=== PATIENT | male | born 1965 | race Caucasian/White ===

== ENCOUNTER 2016-09-01 14:05 | Observation (INO) | payer BC ==
[2016-09-01] MEDS ORDERED: Diltiazem 25 MG/5 ML SDV IVPUSH ONE (14:15)
[2016-09-01] MEDS ORDERED: Sodium Chloride 0.9% 1,000 ML IV SCH ×2 (14:15→17:01)
[2016-09-01] MEDS ORDERED: Diltiazem 100 MG in Sodium Chloride 0.9% 100 ML IV SCH (14:30)
--- NOTE | 2016-09-01 15:19 | EDM.PDOC ---
ED HPI GENERAL MEDICAL PROBLEM - General Chief Complaint: Chest Pain Stated Complaint: FROM CLINIC CHEST PAIN Time Seen by Provider: 09/01/16 15:14 Source of Information: Reports: Patient, Family History Limitations: Reports: No Limitations - History of Present Illness INITIAL COMMENTS - FREE TEXT/NARRATIVE: Pt went to the walk in clinic today and was found to have a heart rate of 190. He has had slight chest pressure. He has very poor exercise tolerance. He did have a tick bite several days ago and he thinks it could have been on about 2 days. He has been having fevers. he had marked chilling . He did not check his temp. Onset: Gradual Duration: Day(s):, Other (pt has been very weak anf tired. ) Location: Reports: Chest, Other (pt has chest pressure. ) Associated Symptoms: Reports: Diaphoresis, Fever/Chills, Weakness - Related Data Allergies Allergy/AdvReac Type Severity Reaction Status Date / Time No Known Allergies Allergy Verified 09/01/16 14:19 Home Meds: Home Meds NK [No Known Home Meds] 09/01/16 [History] Past Medical History Respiratory History: Reports: Bronchitis, Recurrent - Infectious Disease History Infectious Disease History: Reports: Chicken Pox, Measles, Mumps Social & Family History - Family History Cardiac: Reports: Afib, Arrhythmia, [place] - Tobacco Use Smoking Status *Q: Former Smoker Used Tobacco, but Quit: Yes Month Tobacco Last Used: 1 Second Hand Smoke Exposure: No - Caffeine Use Caffeine Use: Reports: Coffee, Soda - Recreational Drug Use Recreational Drug Use: No ED ROS GENERAL - Review of Systems Review Of Systems: See Below Constitutional: Reports: Fever, Chills, Other (pt has shaking chills when he gets out of the shower) HEENT: Reports: No Symptoms Respiratory: Reports: No Symptoms Cardiovascular: Reports: Palpitations, Other ( chest pressure) Endocrine: Reports: Fatigue GI/Abdominal: Reports: No Symptoms : Reports: No Symptoms Musculoskeletal: Reports: No Symptoms Skin: Reports: No Symptoms Neurological: Reports: No Symptoms Psychiatric: Reports: Anxiety ED EXAM, GENERAL - Physical Exam Exam: See Below Free Text/Narrative:: pt arrived with a heart rate of 180 in atrial fib. He hs been very fatiqued and not feeling well Exam Limited By: No Limitations General Appearance: Alert, Anxious, Mild Distress Ears: Normal TMs Nose: Normal Inspection Throat/Mouth: Normal Inspection Head: Atraumatic Neck: Normal Inspection Respiratory/Chest: No Respiratory Distress Cardiovascular: Tachycardia, Irregularly Irregular, Other ( rate of 180) GI/Abdominal: Soft, Non-Tender (Male) Exam: Deferred Rectal (Males) Exam: Deferred Extremities: Normal Inspection Neurological: Alert, Oriented, Normal Cognition Psychiatric: Anxious Course - Vital Signs Last Recorded V/S: Last Vital Signs Temp 36.8 C 09/01/16 14:42 Pulse 148 H 09/01/16 15:23 Resp 16 09/01/16 15:23 BP 164/51 H 09/01/16 15:23 Pulse Ox 95 09/01/16 15:23 - Orders/Labs/Meds Orders: Active Orders 24 hr Category Date Time Status EKG Documentation Completion [RC] ASDIRECTED Care 09/01/16 14:07 Inactive BABESIA MICROTI IGG AND IGM [REF] Stat Lab 09/01/16 14:21 Received CKMB [CHEM] Stat Lab 09/01/16 15:48 Ordered EHRLICHIA CHAFFEENSIS, IGG&IGM [REF] Stat Lab 09/01/16 14:21 Received LYME AB SCREEN RFLX [REF] Stat Lab 09/01/16 14:21 Received UA W/MICROSCOPIC [URIN] Urgent Lab 09/01/16 14:06 Uncollected Diltiazem [Cardizem] 100 mg Med 09/01/16 14:30 Active Sodium Chloride 0.9% [Normal Saline] 100 ml IV TITRATE Doxycycline [Vibramycin] 100 mg Med 09/01/16 15:04 Active Sodium Chloride 0.9% [Normal Saline] 100 ml IV ONETIME Sodium Chloride 0.9% [Normal Saline] 1,000 ml Med 09/01/16 14:15 Active IV ASDIRECTED Medication Orders Sodium Chloride (Normal Saline) 1,000 mls @ 500 mls/hr IV ASDIRECTED GAMAL Last Admin: 09/01/16 14:26 Dose: 500 mls/hr Diltiazem HCl 100 mg/ Sodium (Chloride) 100 mls @ 5 mls/hr IV TITRATE GAMAL; 5 MG /HR PRN Reason: Protocol Last Titration: 09/01/16 14:58 Dose: 15 mg/hr, 15 mls/hr Admin: 09/01/16 14:30 Dose: 5 mg/hr, 5 mls/hr Doxycycline Hyclate 100 mg/ (Sodium Chloride) 100 mls @ 100 mls/hr IV ONETIME ONE Stop: 09/01/16 16:03 Last Admin: 09/01/16 15:30 Dose: 100 mls/hr Admin: 09/01/16 15:30 Dose: 100 mls/hr Labs: Laboratory Tests 09/01/16 09/01/16 09/01/16 Range/Units 14:21 14:21 14:21 WBC 12.1 H (4.5-11.0) K/uL RBC 4.78 (4.30-5.90) M/uL Hgb 14.9 (12.0-15.0) g/dL Hct 43.4 (40.0-54.0) % MCV 91 (80-98) fL MCH 31 (27-31) pg MCHC 34 (32-36) % Plt Count 182 (150-400) K/uL Neut % (Auto) 69 H (36-66) % Lymph % (Auto) 21 L (24-44) % [place] % (Auto) 9 H (2-6) % Eos % (Auto) 0 L (2-4) % Baso % (Auto) 0 (0-1) % Sodium 141 (140-148) mmol/L Potassium 4.0 (3.6-5.2) mmol/L Chloride 104 (100-108) mmol/L Carbon Dioxide 24 (21-32) mmol/L Anion Gap 12.8 (5.0-14.0) mmol/L BUN 29 H (7-18) mg/dL Creatinine 1.5 H (0.8-1.3) mg/dL Est Cr Clr Drug Dosing 53.86 mL/min Estimated GFR (MDRD) 49 L (>60) Glucose 130 H (74-106) mg/dL Calcium 8.3 L (8.5-10.1) mg/dL Magnesium (1.8-2.4) mg/dL Total Bilirubin 0.7 (0.2-1.0) mg/dL AST 137 H (15-37) U/L ALT 159 H (12-78) U/L Alkaline Phosphatase 76 (46-116) U/L Creatine Kinase 3851 H (39-308) U/L Troponin I < 0.017 (0.000-0.056) ng/mL C-Reactive Protein (0.0-0.3) mg/dL Total Protein 6.4 (6.4-8.2) g/dL Albumin 3.7 (3.4-5.0) g/dL Globulin 2.7 (2.3-3.5) g/dL Albumin/Globulin Ratio 1.4 (1.2-2.2) 09/01/16 09/01/16 Range/Units 14:21 14:21 WBC (4.5-11.0) K/uL RBC (4.30-5.90) M/uL Hgb (12.0-15.0) g/dL Hct (40.0-54.0) % MCV (80-98) fL MCH (27-31) pg MCHC (32-36) % Plt Count (150-400) K/uL Neut % (Auto) (36-66) % Lymph % (Auto) (24-44) % [place] % (Auto) (2-6) % Eos % (Auto) (2-4) % Baso % (Auto) (0-1) % Sodium (140-148) mmol/L Potassium (3.6-5.2) mmol/L Chloride (100-108) mmol/L Carbon Dioxide (21-32) mmol/L Anion Gap (5.0-14.0) mmol/L BUN (7-18) mg/dL Creatinine (0.8-1.3) mg/dL Est Cr Clr Drug Dosing mL/min Estimated GFR (MDRD) (>60) Glucose (74-106) mg/dL Calcium (8.5-10.1) mg/dL Magnesium 2.1 (1.8-2.4) mg/dL Total Bilirubin (0.2-1.0) mg/dL AST (15-37) U/L ALT (12-78) U/L Alkaline Phosphatase (46-116) U/L Creatine Kinase (39-308) U/L Troponin I (0.000-0.056) ng/mL C-Reactive Protein 0.85 H (0.0-0.3) mg/dL Total Protein (6.4-8.2) g/dL Albumin (3.4-5.0) g/dL Globulin (2.3-3.5) g/dL Albumin/Globulin Ratio (1.2-2.2) Meds: Medications Generic Name Dose Route Start Last Admin Trade Name Freq PRN Reason Stop Dose Admin Sodium Chloride 1,000 mls @ 500 mls/hr 09/01/16 14:15 09/01/16 14:26 Normal Saline IV 500 mls/hr ASDIRECTED GAMAL Administration Diltiazem HCl 100 mg/ Sodium 100 mls @ 5 mls/hr 09/01/16 14:30 09/01/16 14:58 Chloride IV 15 mg/hr TITRATE GAMAL 15 mls/hr Protocol Titration 5 MG/HR Doxycycline Hyclate 100 mg/ 100 mls @ 100 mls/hr 09/01/16 15:04 09/01/16 15: 30 Sodium Chloride IV 09/01/16 16:03 100 mls/hr ONETIME ONE Administration Discontinued Medications Generic Name Dose Route Start Last Admin Trade Name Freq PRN Reason Stop Dose Admin Diltiazem HCl 10 mg 09/01/16 14:15 09/01/16 14:26 Diltiazem IVPUSH 09/01/16 14:16 10 mg ONETIME ONE Administration - Re-Assessments/Exams Free Text/Narrative Re-Assessment/Exam: 09/01/16 15:49 pt has a markedly elevted cpk. The trop is normal.His creatnine is 1.5. He has borderline platlets and his liver enzymes are up. He did have a tick bite several days ago. His heart rate was 190 on arrival. His chest xray looks ok. His ekg shows atrial fib. Departure - Departure Time of Disposition: 15:52 Disposition: Admitted As Inpatient 65 Condition: fair Clinical Impression: Anaplasmosis, Atrial fibrillation, Myositis Forms: ED Department Discharge Care Plan Goals: admit to Dr babcock. - My Orders Last 24 Hours: My Active Orders 09/01/16 14:06 UA W/MICROSCOPIC [URIN] Urgent 09/01/16 14:07 EKG Documentation Completion [RC] ASDIRECTED 09/01/16 14:15 Sodium Chloride 0.9% [Normal Saline] 1,000 ml IV ASDIRECTED 09/01/16 14:21 BABESIA MICROTI IGG AND IGM [REF] Stat EHRLICHIA CHAFFEENSIS, IGG&IGM [REF] Stat LYME AB SCREEN RFLX [REF] Stat 09/01/16 14:30 Diltiazem [Cardizem] 100 mg Sodium Chloride 0.9% [Normal Saline] 100 ml IV TITRATE 09/01/16 15:04 Doxycycline [Vibramycin] 100 mg Sodium Chloride 0.9% [Normal Saline] 100 ml IV ONETIME 09/01/16 15:48 CKMB [CHEM] Stat - Assessment/Plan Last 24 Hours: My Active Orders 09/01/16 14:06 UA W/MICROSCOPIC [URIN] Urgent 09/01/16 14:07 EKG Documentation Completion [RC] ASDIRECTED 09/01/16 14:15 Sodium Chloride 0.9% [Normal Saline] 1,000 ml IV ASDIRECTED 09/01/16 14:21 BABESIA MICROTI IGG AND IGM [REF] Stat EHRLICHIA CHAFFEENSIS, IGG&IGM [REF] Stat LYME AB SCREEN RFLX [REF] Stat 09/01/16 14:30 Diltiazem [Cardizem] 100 mg Sodium Chloride 0.9% [Normal Saline] 100 ml IV TITRATE 09/01/16 15:04 Doxycycline [Vibramycin] 100 mg Sodium Chloride 0.9% [Normal Saline] 100 ml IV ONETIME 09/01/16 15:48 CKMB [CHEM] Stat
[2016-09-01] MEDS: Doxycycline 100 MG in Sodium Chloride 0.9% 100 ML IV ONE (15:30)
--- NOTE | 2016-09-01 16:49 | PCM.HP ---
H&P History of Present Illness - General Date of Service: 09/01/16 Admit Problem/Dx: Admission Diagnosis/Problem Admission Diagnosis/Problem Afib, Atrial fibrillation Source of Information: Patient, Provider History Limitations: Reports: No Limitations - History of Present Illness Initial Comments - Free Text/Narative: Ephraim presents to the emergency room today with proximally 2 weeks of progressive fatigue, shortness of breath with exertion and fevers at home. He reports onset of symptoms on August 16 with initial complaints including sinus congestion and sinus drainage. Over the next couple of days this improved but his energy level dropped significantly. 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 He reports some intermittent "twinges" in his left chest but does not say that he has pain. 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 He reports moderate achy pain in his thighs for the past few days but thinks this was because he overdid it using the skin steer. He has had fevers including drenching sweats at home over the past few days. He did have a tick bite approximately 2 weeks ago. He does not recall having much attention to the take to see if it was a deer tick or not. Appetite has been normal. No diarrhea but he has had some constipation. Workup in the emergency room remarkable for atrial fibrillation with rapid ventricular response and heart rates in the 150-190 range. These are improving with a diltiazem infusion. He has acute kidney injury, elevated AST and ALT and leukocytosis in addition to a CK level of nearly 3500. There is concern for tickborne illness leading to the above abnormal labs and symptoms. With his atrial fibrillation he will be admitted for management. - Related Data Allergies/Adverse Reactions: Allergies Allergy/AdvReac Type Severity Reaction Status Date / Time No Known Allergies Allergy Verified 09/01/16 14:19 Home Medications: Home Meds NK [No Known Home Meds] 09/01/16 [History] Past Medical History Respiratory History: Reports: Bronchitis, Recurrent - Infectious Disease History Infectious Disease History: Reports: Chicken Pox, Measles, Mumps Social & Family History - Family History Cardiac: Reports: Afib, Arrhythmia, [place] - Tobacco Use Smoking Status *Q: Former Smoker Used Tobacco, but Quit: Yes Month Tobacco Last Used: 1 Second Hand Smoke Exposure: No - Caffeine Use Caffeine Use: Reports: Coffee, Soda - Alcohol Use Alcohol Use History: Yes Days Per Week of Alcohol Use: 1 Number of Drinks Per Day: 1 Total Drinks Per Week: 1 - Recreational Drug Use Recreational Drug Use: No H&P Review of Systems - Review of Systems: Review Of Systems: See Below Free Text/Narrative: A complete 12 point review of systems was obtained. Pertinent positives and negatives are noted in the history of present illness. All other systems were reviewed and were negative except as noted. Exam - Exam Exam: See Below - Vital Signs Vital Signs: Last Vital Signs Temp 36.4 C 09/01/16 16:46 Pulse 111 H 09/01/16 16:46 Resp 18 09/01/16 16:46 BP 130/77 09/01/16 16:46 Pulse Ox 91 L 09/01/16 16:46 Weight: 79.379 kg - Exam Quality Assessment: No: Supplemental Oxygen, Urinary Catheter General: Alert, Oriented, Cooperative. No: Mild Distress HEENT: Conjunctiva Clear, Mucosa Moist & [place]. No: Scleral Icterus Neck: Supple, Trachea Midline. No: Lymphadenopathy, Thyromegaly Lungs: Normal Respiratory Effort, Rales (few right lung base) Cardiovascular: Irregular Rhythm, Tachycardia. No: Systolic Murmur Abdomen: Normal Bowel Sounds, Soft. No: Distention, Tenderness Back Exam: Normal Inspection, Full Range of Motion Extremities: Normal Inspection, Normal Pulses, Edema (very mild ankle edema bilaterally ) Skin: Warm, Dry, Intact Neuro Extensive - Mental Status: Alert, Oriented x3 Neuro Extensive - Motor, Sensory, Reflexes: CN II-XII Intact. No: Dysarthria, Abnormal Motor, Tremor Psychiatric: Alert, Normal Affect - Patient Data Lab Results last 24 hrs: Laboratory Results - last 24 hr 09/01/16 09/01/16 09/01/16 Range/Units 14:21 14:21 14:21 WBC 12.1 H (4.5-11.0) K/uL RBC 4.78 (4.30-5.90) M/uL Hgb 14.9 (12.0-15.0) g/dL Hct 43.4 (40.0-54.0) % MCV 91 (80-98) fL MCH 31 (27-31) pg MCHC 34 (32-36) % Plt Count 182 (150-400) K/uL Neut % (Auto) 69 H (36-66) % Lymph % (Auto) 21 L (24-44) % [place] % (Auto) 9 H (2-6) % Eos % (Auto) 0 L (2-4) % Baso % (Auto) 0 (0-1) % Sodium 141 (140-148) mmol/L Potassium 4.0 (3.6-5.2) mmol/L Chloride 104 (100-108) mmol/L Carbon Dioxide 24 (21-32) mmol/L Anion Gap 12.8 (5.0-14.0) mmol/L BUN 29 H (7-18) mg/dL Creatinine 1.5 H (0.8-1.3) mg/dL Est Cr Clr Drug Dosing 53.86 mL/min Estimated GFR (MDRD) 49 L (>60) Glucose 130 H (74-106) mg/dL Calcium 8.3 L (8.5-10.1) mg/dL Magnesium (1.8-2.4) mg/dL Total Bilirubin 0.7 (0.2-1.0) mg/dL AST 137 H (15-37) U/L ALT 159 H (12-78) U/L Alkaline Phosphatase 76 (46-116) U/L Creatine Kinase 3851 H (39-308) U/L CK-MB (CK-2) (0-3.6) mg/mL Troponin I < 0.017 (0.000-0.056) ng/mL C-Reactive Protein (0.0-0.3) mg/dL Total Protein 6.4 (6.4-8.2) g/dL Albumin 3.7 (3.4-5.0) g/dL Globulin 2.7 (2.3-3.5) g/dL Albumin/Globulin Ratio 1.4 (1.2-2.2) 09/01/16 09/01/16 09/01/16 Range/Units 14:21 14:21 15:51 WBC (4.5-11.0) K/uL RBC (4.30-5.90) M/uL Hgb (12.0-15.0) g/dL Hct (40.0-54.0) % MCV (80-98) fL MCH (27-31) pg MCHC (32-36) % Plt Count (150-400) K/uL Neut % (Auto) (36-66) % Lymph % (Auto) (24-44) % [place] % (Auto) (2-6) % Eos % (Auto) (2-4) % Baso % (Auto) (0-1) % Sodium (140-148) mmol/L Potassium (3.6-5.2) mmol/L Chloride (100-108) mmol/L Carbon Dioxide (21-32) mmol/L Anion Gap (5.0-14.0) mmol/L BUN (7-18) mg/dL Creatinine (0.8-1.3) mg/dL Est Cr Clr Drug Dosing mL/min Estimated GFR (MDRD) (>60) Glucose (74-106) mg/dL Calcium (8.5-10.1) mg/dL Magnesium 2.1 (1.8-2.4) mg/dL Total Bilirubin (0.2-1.0) mg/dL AST (15-37) U/L ALT (12-78) U/L Alkaline Phosphatase (46-116) U/L Creatine Kinase (39-308) U/L CK-MB (CK-2) 97.4 H* (0-3.6) mg/mL Troponin I (0.000-0.056) ng/mL C-Reactive Protein 0.85 H (0.0-0.3) mg/dL Total Protein (6.4-8.2) g/dL Albumin (3.4-5.0) g/dL Globulin (2.3-3.5) g/dL Albumin/Globulin Ratio (1.2-2.2) Result Diagrams: 09/01/16 14:21 09/01/16 14:21 EKG INTERPRETATION EKG Date: 09/01/16 Rhythm: a-fib Rate (beats/min): 170 [place]: normal P-wave: variable QRS: normal ST-T: normal QT: normal Comparison: NA - no prior EKG *Q Meaningful Use (ADM) - VTE *Q VTE Criteria *Q: - VTE Risk Assess *Q Each Risk Factor Represents 1 Point: Age 41 - 59 years Total Score 1 Point Risk Factors: 1 - Stroke *Q Stroke Criteria *Q: - AMI *Q AMI Criteria *Q: - Problem List (1) Atrial fibrillation with rapid ventricular response SNOMED Code(s): 523661044463325 ICD Code: I48.91 - UNSPECIFIED ATRIAL FIBRILLATION Status: Acute Current Visit: Yes (2) Acute kidney injury SNOMED Code(s): 32306946 ICD Code: N17.9 - ACUTE KIDNEY FAILURE, UNSPECIFIED Status: Acute Current Visit: Yes (3) Anaplasmosis SNOMED Code(s): 155702629 ICD Code: A77.49 - OTHER EHRLICHIOSIS Status: Acute Current Visit: Yes Problem List Initiated/Reviewed/Updated: Yes Orders Last 24hrs: Active Orders 24 hr Category Date Time Status EKG Documentation Completion [RC] ASDIRECTED Care 09/01/16 14:07 Inactive BABESIA MICROTI IGG AND IGM [REF] Stat Lab 09/01/16 14:21 Received EHRLICHIA CHAFFEENSIS, IGG&IGM [REF] Stat Lab 09/01/16 14:21 Received LYME AB SCREEN RFLX [REF] Stat Lab 09/01/16 14:21 Received TSH ULTRASENSITIVE [CHEM] Routine Lab 09/01/16 16:40 Ordered UA W/MICROSCOPIC [URIN] Urgent Lab 09/01/16 14:06 Uncollected Diltiazem [Cardizem] 100 mg Med 09/01/16 14:30 Active Sodium Chloride 0.9% [Normal Saline] 100 ml IV TITRATE Sodium Chloride 0.9% [Normal Saline] 1,000 ml Med 09/01/16 14:15 Active IV ASDIRECTED Resuscitation Status Routine Resus Stat 09/01/16 16:41 Ordered Medication Orders Sodium Chloride (Normal Saline) 1,000 mls @ 500 mls/hr IV ASDIRECTED GAMAL Last Admin: 09/01/16 14:26 Dose: 500 mls/hr Diltiazem HCl 100 mg/ Sodium (Chloride) 100 mls @ 5 mls/hr IV TITRATE GAMAL; 5 MG /HR PRN Reason: Protocol Last Titration: 09/01/16 14:58 Dose: 15 mg/hr, 15 mls/hr Admin: 09/01/16 14:30 Dose: 5 mg/hr, 5 mls/hr Assessment/Plan Comment:: Assessment and plan - Atrial fibrillation with rapid ventricular response - no history of heart disease. Suspect inflammatory cause and possibly myocarditis with probable tickborne illness. CK level elevated but troponin level normal. Patient is not symptomatic with the atrial fibrillation side not sure how long he has been in the rhythm. Cardioversion contraindicated because of this. His electrolytes are acceptable. Thyroid studies are pending. He seems to be improving with the diltiazem infusion. Hopefully treating the infection we'll provide significant benefit for the heart is well. -Continue diltiazem infusion -Followup thyroid studies -Consider low-dose beta dinh versus potentially amiodarone if diltiazem isn' t effective -Treat infection as below Acute kidney injury - probably secondary to acute infection and for hydration. -IV fluids -Labs in the morning Probable anaplasmosis - recent tick bite with compatible symptoms. Tick stuck at least 36 hours and possibly more than 48 hours. Laboratory studies but other than the elevated white blood cell count. He has received doxycycline in the emergency room. Is not currently febrile. Other obvious source of infection. -Doxycycline -Followup tick studies which are send out labs -Repeat labs in the morning Maintenance issues - - DVT prophylaxis - SCDs - GI prophylaxis - not indicated - Nutrition - regular diet - Osman catheter - not indicated CODE STATUS - full code Admission justification - patient will be referred observation status for management of paroxysmal atrial fibrillation with rapid ventricular response Disposition - anticipate discharge home tomorrow Primary care physician - none currently Navdeep Anthony M.D.
[2016-09-01] MEDS ORDERED: Acetaminophen 325 MG Tab PO PRN (17:01)
[2016-09-01] MEDS ORDERED: Polyethylene Glycol 3350 Powder 17 GM Packet PO PRN (17:01)
[2016-09-01] MEDS ORDERED: Ibuprofen 400 MG Tab PO PRN (17:01)
[2016-09-01] MEDS ORDERED: Ondansetron 4 MG Tab.DIS PO PRN (17:01)
[2016-09-01] MEDS: Diltiazem 100 MG in Sodium Chloride 0.9% 100 ML IV SCH (20:37)
[2016-09-01] MEDS ORDERED: LORazepam 1 MG Tab PO PRN (23:10)
[2016-09-02] MEDS: Diltiazem 100 MG in Sodium Chloride 0.9% 100 ML IV SCH (03:35)
[2016-09-02] MEDS ORDERED: Doxycycline 100 MG Cap PO SCH (04:00)
[2016-09-02 05:29] VITALS: BP 113/69
[2016-09-02] MEDS ORDERED: Diltiazem 180 MG Cap.CD PO SCH (06:15)
--- NOTE | 2016-09-02 06:21 | PCM.DCSUM1 ---
Discharge Summary - Hospital Course Brief History: 51-year-old male with history of tobacco dependence who presents with fevers and fatigue. 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 - Discharge Data Discharge Date: 09/02/16 Discharge Disposition: Home, Self-Care 01 Condition: Fair - Discharge Diagnosis/Problem(s) (1) Atrial fibrillation with rapid ventricular response SNOMED Code(s): 696827301370855 ICD Code: I48.91 - UNSPECIFIED ATRIAL FIBRILLATION Status: Acute (2) Acute kidney injury SNOMED Code(s): 66335426 ICD Code: N17.9 - ACUTE KIDNEY FAILURE, UNSPECIFIED Status: Acute (3) Anaplasmosis SNOMED Code(s): 015505628 ICD Code: A77.49 - OTHER EHRLICHIOSIS Status: Acute - Patient Summary/Data Hospital Course: Ephraim presented to the emergency room with fevers and fatigue. 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 He was admitted to the intensive care unit on a diltiazem infusion. There is no evidence for myocardial ischemia but he did have an elevated CPK which was thought secondary to myositis and possibly myocarditis from the anaplasmosis. We are able to achieve good rate control using the diltiazem infusion but he did remain in atrial fibrillation overnight. His CK level has improved with hydration as has the mild elevation of AST and ALT. Has not had any fevers overnight and clinically feels better the morning after admission. 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 We have achieved good rate control so I believe he is safe for hospital discharge and outpatient management at this point. I suspect that the atrial fibrillation is caused by the suspected infection and should resolve with treatment for the infection. His CHADSS score is 0 at this time but I did recommend that he take a baby aspirin. 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 Titers for tickborne disease have been sent but even if these return negative I think he would benefit from a full course of treatment because of the known tic bite with attachment greater than 24 hours and possibly greater than 48 hours as well as fairly classic symptoms and laboratory studies that fit fairly well. He will be discharged to home on the doxycycline as well as a long-acting version of diltiazem and a baby aspirin. He was encouraged to followup early next week to ensure that he continues to improve. - Patient Instructions Diet: Regular Diet as Tolerated Activity: As Tolerated Driving: May Drive Today Showering/Bathing: May Shower Notify Provider of: Fever, Increased Pain, Nausea and/or Vomiting Other/Special Instructions: 1. 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 Your heart rate has improved significantly with the use of diltiazem but you have not gone back to a normal rhythm as of yet. I recommend that we continue the diltiazem after hospital discharge to help keep your heart rate at a normal level. This should just be a temporary medication. You should take it once daily in the morning. Your first dose is due tomorrow morning because you had a dose before you left the hospital. I would recommend that you take a baby aspirin (81 mg) once daily for the next month. This will help reduce your risk of forming a blood clot in the upper chambers of your heart. 2. 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 Treatment for this consists of taking doxycycline 100 mg twice daily for a total of 21 days. You should take this medication with food. Your first dose is due tonight at supper time. This medication can make your skin more sensitive to the sun so you should take extra steps to avoid excessive sun exposure. 3. You can maintain activity as tolerated listened to your body and if you are becoming fatigued or short of breath please take a break. 4. Please followup next week to recheck your heart and see how you are feeling after the antibiotics were initiated. 5. Please seek medical attention if you develop fever greater than 101, have shortness of breath impairs your activities of daily living, you feel dizzy or lightheaded to the point that you think you're going to pass out or you do not continue to feel better with the current treatment plan. - Discharge Plan Prescriptions/Med Rec: Diltiazem HCl [Diltiazem 24Hr Cd] 360 mg PO DAILY #30 cap.er.24h Doxycycline Calcium [IMW: Doxycycline] 100 mg PO Q12H #40 capsule LORazepam [Ativan] 1 mg PO BEDTIME PRN #15 tablet PRN Reason: Sleep Home Medications: Home Meds Diltiazem HCl [Diltiazem 24Hr Cd] 360 mg PO DAILY #30 cap.er.24h 09/02/16 [Rx] Doxycycline Calcium [IMW: Doxycycline] 100 mg PO Q12H #40 capsule 09/02/16 [Rx] LORazepam [Ativan] 1 mg PO BEDTIME PRN #15 tablet 09/02/16 [Rx] Patient Handouts: Doxycycline tablets or capsules, Atrial Fibrillation Referrals: Marek Patel STRAPPER OPERATOR [Nurse Practitioner] - (f/u next week - f/u hospital stay for afib and anaplasmosis) - Discharge Summary/Plan Comment DC Time >30 min.: No (25) - Patient Data Vitals - Most Recent: Last Vital Signs Temp 36.7 C 09/02/16 05:00 Pulse 96 09/02/16 05:00 Resp 22 H 09/02/16 05:00 BP 113/69 09/02/16 05:00 Pulse Ox 91 L 09/02/16 05:00 Weight - Most Recent: 79.379 kg I&O - Last 24 hours: Intake & Output 09/01/16 09/01/16 09/02/16 14:59 22:59 06:59 Intake Total 600 Balance 600 Lab Results - Last 24 hrs: Laboratory Results - last 24 hr 09/02/16 09/02/16 Range/Units 05:10 05:10 WBC 11.3 H (4.5-11.0) K/uL RBC 4.43 (4.30-5.90) M/uL Hgb 13.7 (12.0-15.0) g/dL Hct 40.7 (40.0-54.0) % MCV 92 (80-98) fL MCH 31 (27-31) pg MCHC 34 (32-36) % Plt Count 154 (150-400) K/uL Sodium 139 L (140-148) mmol/L Potassium 4.0 (3.6-5.2) mmol/L Chloride 107 (100-108) mmol/L Carbon Dioxide 20 L (21-32) mmol/L Anion Gap 16.0 H (5.0-14.0) mmol/L BUN 24 H (7-18) mg/dL Creatinine 1.2 (0.8-1.3) mg/dL Est Cr Clr Drug Dosing 67.32 mL/min Estimated GFR (MDRD) > 60 (>60) Glucose 100 (74-106) mg/dL Calcium 7.7 L (8.5-10.1) mg/dL Total Bilirubin 0.6 (0.2-1.0) mg/dL AST 88 H (15-37) U/L ALT 130 H (12-78) U/L Alkaline Phosphatase 68 (46-116) U/L Creatine Kinase 1877 H (39-308) U/L Total Protein 5.8 L (6.4-8.2) g/dL Albumin 3.3 L (3.4-5.0) g/dL Globulin 2.5 (2.3-3.5) g/dL Albumin/Globulin Ratio 1.3 (1.2-2.2) Med Orders - Current: Current Medications Acetaminophen (Tylenol) 650 mg PO Q4H PRN PRN Reason: Pain (Mild 1-3)/fever Diltiazem HCl (Cardizem Cd) 360 mg PO DAILY GAMAL Doxycycline Hyclate (Vibramycin) 100 mg PO Q12H GAMAL Last Admin: 09/02/16 03:46 Dose: 100 mg Diltiazem HCl 100 mg/ Sodium (Chloride) 100 mls @ 5 mls/hr IV TITRATE GAMAL; 5 MG /HR PRN Reason: Protocol Last Admin: 09/02/16 03:35 Dose: 15 mg/hr, 15 mls/hr Sodium Chloride (Normal Saline) 1,000 mls @ 125 mls/hr IV ASDIRECTED GAMAL Last Admin: 09/02/16 03:37 Dose: 125 mls/hr Ibuprofen (Motrin) 400 mg PO Q6H PRN PRN Reason: Pain (mild 1-3) Lorazepam (Ativan) 1 mg PO Q4H PRN PRN Reason: Anxiety Last Admin: 09/01/16 23:26 Dose: 1 mg Ondansetron HCl (Zofran Odt) 4 mg PO Q6H PRN PRN Reason: Nausea able to take PO Polyethylene Glycol (Miralax) 17 gm PO DAILY PRN PRN Reason: Constipation Discontinued Medications Diltiazem HCl (Diltiazem) 10 mg IVPUSH ONETIME ONE Stop: 09/01/16 14:16 Last Admin: 09/01/16 14:26 Dose: 10 mg Sodium Chloride (Normal Saline) 1,000 mls @ 500 mls/hr IV ASDIRECTED GAMAL Last Admin: 09/01/16 14:26 Dose: 500 mls/hr Diltiazem HCl 100 mg/ Sodium (Chloride) 100 mls @ 5 mls/hr IV TITRATE GAMAL; 5 MG /HR PRN Reason: Protocol Last Titration: 09/01/16 14:58 Dose: 15 mg/hr, 15 mls/hr Doxycycline Hyclate 100 mg/ (Sodium Chloride) 100 mls @ 100 mls/hr IV ONETIME ONE Stop: 09/01/16 16:03 Last Admin: 09/01/16 15:30 Dose: 100 mls/hr *Q Meaningful Use (DIS) - VTE *Q VTE Criteria *Q: - Stroke *Q Stroke Criteria *Q: - AMI *Q AMI Criteria *Q:
== END 2016-09-02 06:35 | disposition home or self-care (01) ==
LOC: JP.ED 14:05 → JP.ICU 17:04
PROVIDERS: ADMIT Internal Medicine; ATTEND Internal Medicine
DX: I48.91 Unspecified atrial fibrillation (principal); N17.9 Acute kidney failure, unspecified; A77.49 Other ehrlichiosis; Z79.899 Other long term (current) drug therapy; Z87.891 Personal history of nicotine dependence
CPT/HCPCS: 36415; 80053; 81001; 82550; 82553; 83735; 84443; 84484; 85025; 85027; 86140; 86618; 86666; 86753; 96365; 96366; 96367; 96368; 96376; 99285; A9270; G0378; J7030; J7040; J3490

== ENCOUNTER 2016-09-09 09:54 | Inpatient (IN) | payer BC ==
[2016-09-09] MEDS ORDERED: Ondansetron 4 MG/2 ML SDV IV PRN (10:41)
[2016-09-09] MEDS ORDERED: Acetaminophen 325 MG Tab PO PRN (10:41)
[2016-09-09] MEDS ORDERED: Polyethylene Glycol 3350 Powder 17 GM Packet PO PRN (10:41)
[2016-09-09] MEDS ORDERED: Docusate Sodium 100 MG Cap PO PRN (10:41)
[2016-09-09] MEDS ORDERED: Magnesium Hydroxide 400 MG/5 ML Susp 30 ML Cup PO PRN (10:41)
[2016-09-09] MEDS ORDERED: Sodium Chloride 0.9% 10 ML Syringe FLUSH PRN ×2 (10:41→16:34)
[2016-09-09] MEDS ORDERED: oxyCODONE 5 MG Tab PO PRN (10:41)
[2016-09-09] MEDS ORDERED: Metoprolol Tartrate 25 MG Tab PO SCH (11:00)
[2016-09-09] MEDS ORDERED: Furosemide 20 MG/2 ML VIAL IV ONE (11:00)
[2016-09-09] MEDS ORDERED: Digoxin 500 MCG/2 ML Amp IVPUSH ONE ×2 (11:19→16:45)
--- NOTE | 2016-09-09 11:42 | CR ---
Mild cardiomegaly. Mild vascular congestion. Trace pleural effusions. No focal consolidation.
[2016-09-09] MEDS: Enoxaparin 40 MG/0.4 ML Syringe SUBCUT SCH (11:47)
[2016-09-09] MEDS ORDERED: Sodium Chloride 0.9% 100 ML IV ONE (16:34)
--- NOTE | 2016-09-09 16:40 | PCM.HP ---
H&P History of Present Illness - General Date of Service: 09/09/16 Admit Problem/Dx: Admission Diagnosis/Problem Admission Diagnosis/Problem Atrial fibrillation Source of Information: Patient, Old Records, Provider, RN Notes Reviewed History Limitations: Reports: No Limitations - History of Present Illness Initial Comments - Free Text/Narative: This patient is a 51-year-old gentleman who is admitted as a direct admission from the clinic because of atrial fibrillation with rapid ventricular response as well as severe peripheral edema/anasarca. He's had difficulty over the past 2-3 weeks with progressive increase in shortness of breath and peripheral edema. He was hospitalized at this facility just over a week ago with atrial fibrillation and rapid ventricular response. He was started on rate slowing medication with Cardizem and at the time of discharge had good rate control. CHADs2 VASc SCORE was 0 so he was not started on anticoagulation other than aspirin 81 mg daily. Since discharge he's gained significant weight as well as marked peripheral edema extending up into the lower abdomen and lower back. During this period of time has become progressively even more short of breath. He was seen and evaluated the clinic today because of elevated heart rate as well as shortness of breath and marked peripheral edema he was referred for direct admission to the hospital for further evaluation and management. He denies significant symptoms of chest pain or pressure, he has had both PND and orthopnea but they seem to be somewhat improved over the past few days. - Related Data Allergies/Adverse Reactions: Allergies Allergy/AdvReac Type Severity Reaction Status Date / Time No Known Allergies Allergy Verified 09/01/16 14:19 Home Medications: Home Meds Diltiazem HCl [Diltiazem 24Hr Cd] 360 mg PO DAILY #30 cap.er.24h 09/02/16 [Rx] Doxycycline Calcium [IMW: Doxycycline] 100 mg PO Q12H #40 capsule 09/02/16 [Rx] LORazepam [Ativan] 1 mg PO BEDTIME PRN #15 tablet 09/02/16 [Rx] Aspirin [Halfprin] 81 mg PO DAILY 09/09/16 [History] Past Medical History Cardiovascular History: Reports: Arrhythmia, Heart Failure, Other (See Below) Other Cardiovascular History: a fib Respiratory History: Reports: Bronchitis, Recurrent - Infectious Disease History Infectious Disease History: Reports: Chicken Pox, Measles, Mumps Social & Family History - Family History Cardiac: Reports: Afib, Arrhythmia, [place] - Tobacco Use Smoking Status *Q: Former Smoker Used Tobacco, but Quit: Yes Month Tobacco Last Used: 1 Second Hand Smoke Exposure: No - Caffeine Use Caffeine Use: Reports: Coffee, Soda - Alcohol Use Days Per Week of Alcohol Use: 1 Number of Drinks Per Day: 1 Total Drinks Per Week: 1 - Recreational Drug Use Recreational Drug Use: No H&P Review of Systems - Review of Systems: Review Of Systems: See Below General: Denies: Fever, Chills, Weakness, Diaphoresis HEENT: Reports: No Symptoms Pulmonary: Reports: Shortness of Breath. Denies: Wheezing, Pleuritic Chest Pain , Cough, Sputum, Hemoptysis Cardiovascular: Reports: Dyspnea on Exertion, Orthopnea, PND, Edema, Lightheadedness. Denies: Chest Pain, Palpitations, Syncope Gastrointestinal: Reports: No Symptoms Genitourinary: Reports: No Symptoms Musculoskeletal: Reports: No Symptoms Skin: Reports: No Symptoms Psychiatric: Reports: No Symptoms Neurological: Reports: No Symptoms Hematologic/Lymphatic: Reports: No Symptoms Immunologic: Reports: No Symptoms Exam - Exam Exam: See Below - Vital Signs Vital Signs: Last Vital Signs Temp 97.9 F 09/09/16 11:03 Pulse 90 09/09/16 15:41 Resp 19 09/09/16 15:41 BP 100/79 09/09/16 15:41 Pulse Ox 95 09/09/16 15:41 Weight: 190 lb 6.4 oz - Exam Quality Assessment: DVT Prophylaxis General: Alert, Oriented, Cooperative, Mild Distress HEENT: Conjunctiva Clear, EOMI, Hearing Intact, Mucosa Moist & [place], Normal Nasal Septum, Posterior Pharynx Clear, Pupils Equal, Pupils Reactive Neck: Supple, Trachea Midline, +2 Carotid Pulse wo Bruit Lungs: Normal Respiratory Effort, Rales. No: Decreased Breath Sounds, Crackles , Rhonchi, Wheezing Cardiovascular: Normal S1, Normal S2, Irregular Rhythm, Tachycardia, Systolic Murmur. No: Diastolic Murmur Abdomen: Normal Bowel Sounds, Soft Back Exam: Normal Inspection, Full Range of Motion, NT Extremities: Edema Skin: Warm, Dry, Intact Neurological: Cranial Nerves Intact, Strength Equal Bilateral, Normal Speech, Normal Tone, Sensation Intact. No: Focal Deficit Neuro Extensive - Mental Status: Alert, Oriented x3, Normal Mood/Affect, Normal Cognition, Memory Intact - Patient Data Lab Results last 24 hrs: Laboratory Results - last 24 hr 09/09/16 09/09/16 09/09/16 Range/Units 11:10 11:10 11:10 WBC 12.1 H (4.5-11.0) K/uL RBC 4.79 (4.30-5.90) M/uL Hgb 14.9 (12.0-15.0) g/dL Hct 44.0 (40.0-54.0) % MCV 92 (80-98) fL MCH 31 (27-31) pg MCHC 34 (32-36) % Plt Count 177 (150-400) K/uL Neut % (Auto) 64 (36-66) % Lymph % (Auto) 25 (24-44) % [place] % (Auto) 10 H (2-6) % Eos % (Auto) 1 L (2-4) % Baso % (Auto) 1 (0-1) % Sodium 139 L (140-148) mmol/L Potassium 4.1 (3.6-5.2) mmol/L Chloride 108 (100-108) mmol/L Carbon Dioxide 23 (21-32) mmol/L Anion Gap 12.1 (5.0-14.0) mmol/L BUN 30 H (7-18) mg/dL Creatinine 1.3 (0.8-1.3) mg/dL Est Cr Clr Drug Dosing 62.15 mL/min Estimated GFR (MDRD) 58 L (>60) Glucose 109 H (74-106) mg/dL Calcium 8.0 L (8.5-10.1) mg/dL Magnesium 1.9 (1.8-2.4) mg/dL Total Bilirubin 0.5 (0.2-1.0) mg/dL AST 56 H (15-37) U/L ALT 103 H (12-78) U/L Alkaline Phosphatase 81 (46-116) U/L Creatine Kinase 503 H (39-308) U/L CK-MB (CK-2) 15.0 H* (0-3.6) mg/mL Troponin I 0.017 (0.000-0.056) ng/mL Total Protein 5.9 L (6.4-8.2) g/dL Albumin 3.1 L (3.4-5.0) g/dL Globulin 2.8 (2.3-3.5) g/dL Albumin/Globulin Ratio 1.1 L (1.2-2.2) TSH, Ultra Sensitive 0.837 (0.358-3.740) uIU/mL Result Diagrams: 09/09/16 11:10 09/09/16 11:10 *Q Meaningful Use (ADM) - VTE *Q VTE Criteria *Q: - VTE Risk Assess *Q Each Risk Factor Represents 1 Point: Age 41 - 59 years, Swollen Legs, Current, Congestive Heart Failure, Less than 1 Month Total Score 1 Point Risk Factors: 3 Each Risk Factor Represents 2 Points: None Total Score 2 Point Risk Factors: 0 Each Risk Factor Represents 3 Points: None Total Score 3 Point Risk Factors: 0 Each Risk Factor Represents 5 Points: None Total Score 5 Point Risk Factors: 0 Venous Thromboembolism Risk Factor Score *Q: 3 - Stroke *Q Stroke Criteria *Q: - AMI *Q AMI Criteria *Q: Problem List Initiated/Reviewed/Updated: Yes Orders Last 24hrs: Active Orders 24 hr Category Date Time Status Cardiac Monitoring [RC] .As Directed Care 09/09/16 10:42 Active Height and Weight [RC] 0511 Care 09/09/16 10:41 Active Intake and Output [RC] QSHIFT Care 09/09/16 10:42 Active Notify Provider Vital Signs [RC] ASDIRECTED Care 09/09/16 10:42 Active Oxygen Therapy [RC] PRN Care 09/09/16 10:41 Active Up ad Karyna [RC] ASDIRECTED Care 09/09/16 10:41 Active VTE/DVT Education [RC] Per Unit Routine Care 09/09/16 10:41 Active Vital Signs [RC] Q4H Care 09/09/16 10:41 Active Consult to Dietary [Consult to Yard Switcher] [CONS] Cons 09/09/16 14:23 Active Routine 2 Gram Sodium Diet [DIET] Diet 09/09/16 Dinner Active Ang Chest [CT] Stat Exams 09/09/16 15:41 Ordered Echo Comp wo Cont [US] Urgent Exams 09/11/16 08:00 Ordered BASIC METABOLIC PANEL,BMP [CHEM] Timed Lab 09/10/16 05:00 Ordered CBC WITH AUTO DIFF [HEME] Timed Lab 09/10/16 05:00 Ordered CREATINE KINASE,CK [CHEM] Timed Lab 09/10/16 05:00 Ordered DIGOXIN [CHEM] Timed Lab 09/10/16 05:00 Ordered MAGNESIUM [CHEM] Timed Lab 09/10/16 05:00 Ordered Acetaminophen [Tylenol] Med 09/09/16 10:41 Active 650 mg PO Q4H PRN Aspirin Med 09/10/16 09:00 Active 81 mg PO DAILY Digoxin [Lanoxin] Med 09/09/16 16:28 Once 250 mcg IVPUSH ONETIME ONE Docusate Sodium [Colace] Med 09/09/16 10:41 Active 100 mg PO BID PRN Doxycycline [Vibramycin] Med 09/09/16 21:00 Active 100 mg PO BID Enoxaparin [Lovenox] Med 09/09/16 10:45 Active 40 mg SUBCUT DAILY Furosemide [Lasix] Med 09/09/16 19:00 Ordered 20 mg IVPUSH Q12H LORazepam [Ativan] Med 09/09/16 10:40 Active 1 mg PO BEDTIME PRN Magnesium Hydroxide [Milk of Magnesia] Med 09/09/16 10:41 Active 30 ml PO Q12H PRN Ondansetron [Zofran] Med 09/09/16 10:41 Active 4 mg IV Q4H PRN Polyethylene Glycol 3350 [MiraLAX] Med 09/09/16 10:41 Active 17 gm PO DAILY PRN Sodium Chloride 0.9% [Saline Flush] Med 09/09/16 10:41 Active 10 ml FLUSH ASDIRECTED PRN oxyCODONE Med 09/09/16 10:41 Active 5 mg PO Q4H PRN Saline Lock Insert [OM.PC] Routine Oth 09/09/16 10:41 Ordered Resuscitation Status Routine Resus Stat 09/09/16 10:41 Ordered EKG 12 Lead [EK] Stat Ther 09/09/16 10:41 Ordered Medication Orders Acetaminophen (Tylenol) 650 mg PO Q4H PRN PRN Reason: Pain (Mild 1-3)/fever Aspirin (Aspirin) 81 mg PO DAILY GAMAL Docusate Sodium (Colace) 100 mg PO BID PRN PRN Reason: Constipation Doxycycline Hyclate (Vibramycin) 100 mg PO BID GAMAL Enoxaparin Sodium (Lovenox) 40 mg SUBCUT DAILY GAMAL Last Admin: 09/09/16 11:47 Dose: 40 mg Lorazepam (Ativan) 1 mg PO BEDTIME PRN PRN Reason: Sleep Magnesium Hydroxide (Milk Of Magnesia) 30 ml PO Q12H PRN PRN Reason: Constipation Ondansetron HCl (Zofran) 4 mg IV Q4H PRN PRN Reason: Nausea/Vomiting Oxycodone HCl (Oxycodone) 5 mg PO Q4H PRN PRN Reason: Pain (moderate 4-6) Polyethylene Glycol (Miralax) 17 gm PO DAILY PRN PRN Reason: Constipation Sodium Chloride (Saline Flush) 10 ml FLUSH ASDIRECTED PRN PRN Reason: Keep Vein Open Assessment/Plan Comment:: ASSESSMENT AND PLAN SHORTNESS OF BREATH ASSOCIATED WITH MARKED PERIPHERAL EDEMA-suspect underlying cardiac dysfunction, also has significant systolic murmur noted on physical examination. Recent symptoms of increased shortness of breath, peripheral edema , PND, orthopnea, associated with atrial fibrillation and rapid ventricular response. -2 g sodium diet -Lasix 20 mg IV every 12 hours -CT scan with PE protocol -Echocardiogram to assess left ventricular function and valvular status ATRIAL FIBRILLATION WITH RAPID VENTRICULAR RESPONSE-unknown length of duration -Hold oral Cardizem given borderline blood pressures -Consider switch to beta dinh therapy -Digoxin IV -digoxin level in a.m. ELEVATED CK-noted on previous admission marked elevation, CK-MB also found to be elevated but only in the range of 2-3% of total -Repeat CT in a.m. -We'll need to consider evaluation for skeletal muscle inflammation MAINTENANCE ISSUES -DVT prophylaxis; Lovenox 40 mg subcutaneous daily -GI prophylaxis; not required -Osman catheter; not required -Nutrition; 2 g sodium diet -Nicotine dependence; not indicated CODE STATUS-full code ADMISSION STATUS-patient will be admitted to inpatient status, expect at least a 2 night hospital stay for evaluation and management of problems as outlined above. At the time of this admission I do not reasonably expected evaluation and management of this problem will require more than a 96 hour hospital stay. DISPOSITION-anticipate discharge to home after the hospital stay. PRIMARY CARE PROVIDER-Dr. Leone
[2016-09-09] MEDS ORDERED: Iopamidol 755 Mg/ML 100 ML Bottle IV SCH (16:45)
[2016-09-09] MEDS: Furosemide 20 MG/2 ML VIAL IVPUSH SCH (18:19)
[2016-09-09] MEDS: Doxycycline 100 MG Cap PO SCH (20:27)
[2016-09-10] MEDS: LORazepam 1 MG Tab PO PRN ×2 (00:06→21:50)
[2016-09-10] MEDS: Furosemide 20 MG/2 ML VIAL IVPUSH SCH ×2 (06:09→18:15)
[2016-09-10] MEDS: Doxycycline 100 MG Cap PO SCH ×2 (08:00→21:45)
[2016-09-10] MEDS: Aspirin 81 MG Tab.Chew PO SCH (08:00)
[2016-09-10] MEDS: Enoxaparin 40 MG/0.4 ML Syringe SUBCUT SCH (08:00)
[2016-09-10] MEDS ORDERED: Digoxin 500 MCG/2 ML Amp IVPUSH ONE (08:30)
[2016-09-10] MEDS ORDERED: Magnesium Oxide 400 MG Tab PO ONE (08:30)
[2016-09-10] MEDS ORDERED: Potassium Chloride 20 MEQ Tab.ER PO ONE (09:00)
[2016-09-10] MEDS ORDERED: DILTIAZEM HCL 360 MG PO SCH (09:00)
[2016-09-10] MEDS ORDERED: Diltiazem 180 MG Cap.CD PO SCH (09:00)
--- NOTE | 2016-09-10 09:20 | PCM.PN ---
- General Info Date of Service: 09/10/16 Functional Status: Reports: tolerating diet, urinating - Review of Systems General: Denies: Fever, Weakness, Chills Pulmonary: Denies: no symptoms Cardiovascular: Reports: Palpitations, Dyspnea on Exertion, Edema. Denies: Chest Pain, Orthopnea, PND Gastrointestinal: Reports: No symptoms Systems Review Comment:: This patient is a 51-year-old gentleman who is admitted yesterday with congestive heart failure, shortness of breath, peripheral edema, and atrial fibrillation with rapid ventricular response. He has diuresed well since admission and notes improvement in his edema as well as shortness of breath. Blood pressure somewhat better than it had been yesterday, diltiazem has been held. He's been started on digoxin which has helped rate control somewhat and we'll plan to start beta dinh therapy today. - Patient Data Vitals - most recent: Last Vital Signs Temp 97.9 F 09/10/16 08:00 Pulse 105 H 09/10/16 05:45 Resp 20 09/10/16 08:00 BP 109/61 09/10/16 08:00 Pulse Ox 95 09/10/16 08:00 Weight - most recent: 181 lb 6.4 oz I&O - last 24 hours: Intake & Output 09/09/16 09/10/16 09/10/16 22:59 06:59 14:59 Intake Total 240 Output Total 300 1375 1600 Balance -300 -5745 -1600 Lab Results last 24 hrs: Laboratory Results - last 24 hr 09/09/16 09/09/16 09/09/16 Range/Units 11:10 11:10 11:10 WBC 12.1 H (4.5-11.0) K/uL RBC 4.79 (4.30-5.90) M/uL Hgb 14.9 (12.0-15.0) g/dL Hct 44.0 (40.0-54.0) % MCV 92 (80-98) fL MCH 31 (27-31) pg MCHC 34 (32-36) % Plt Count 177 (150-400) K/uL Neut % (Auto) 64 (36-66) % Lymph % (Auto) 25 (24-44) % [place] % (Auto) 10 H (2-6) % Eos % (Auto) 1 L (2-4) % Baso % (Auto) 1 (0-1) % Sodium 139 L (140-148) mmol/L Potassium 4.1 (3.6-5.2) mmol/L Chloride 108 (100-108) mmol/L Carbon Dioxide 23 (21-32) mmol/L Anion Gap 12.1 (5.0-14.0) mmol/L BUN 30 H (7-18) mg/dL Creatinine 1.3 (0.8-1.3) mg/dL Est Cr Clr Drug Dosing 62.15 mL/min Estimated GFR (MDRD) 58 L (>60) Glucose 109 H (74-106) mg/dL Calcium 8.0 L (8.5-10.1) mg/dL Magnesium 1.9 (1.8-2.4) mg/dL Total Bilirubin 0.5 (0.2-1.0) mg/dL AST 56 H (15-37) U/L ALT 103 H (12-78) U/L Alkaline Phosphatase 81 (46-116) U/L Creatine Kinase 503 H (39-308) U/L CK-MB (CK-2) 15.0 H* (0-3.6) mg/mL Troponin I 0.017 (0.000-0.056) ng/mL Total Protein 5.9 L (6.4-8.2) g/dL Albumin 3.1 L (3.4-5.0) g/dL Globulin 2.8 (2.3-3.5) g/dL Albumin/Globulin Ratio 1.1 L (1.2-2.2) Triglycerides (15-150) mg/dL Cholesterol (0-200) mg/dL LDL Cholesterol Direct (0-100) mg/dL HDL Cholesterol (40-60) mg/dL TSH, Ultra Sensitive 0.837 (0.358-3.740) uIU/mL Digoxin (0.90-2.00) ng/mL 09/10/16 09/10/16 09/10/16 Range/Units 05:50 05:50 05:50 WBC 11.4 H (4.5-11.0) K/uL RBC 4.62 (4.30-5.90) M/uL Hgb 14.5 (12.0-15.0) g/dL Hct 42.3 (40.0-54.0) % MCV 92 (80-98) fL MCH 31 (27-31) pg MCHC 34 (32-36) % Plt Count 171 (150-400) K/uL Neut % (Auto) 65 (36-66) % Lymph % (Auto) 23 L (24-44) % [place] % (Auto) 10 H (2-6) % Eos % (Auto) 2 (2-4) % Baso % (Auto) 0 (0-1) % Sodium 141 (140-148) mmol/L Potassium 3.9 (3.6-5.2) mmol/L Chloride 109 H (100-108) mmol/L Carbon Dioxide 24 (21-32) mmol/L Anion Gap 11.9 (5.0-14.0) mmol/L BUN 26 H (7-18) mg/dL Creatinine 1.2 (0.8-1.3) mg/dL Est Cr Clr Drug Dosing 67.32 mL/min Estimated GFR (MDRD) > 60 (>60) Glucose 91 (74-106) mg/dL Calcium 7.9 L (8.5-10.1) mg/dL Magnesium 1.7 L (1.8-2.4) mg/dL Total Bilirubin (0.2-1.0) mg/dL AST (15-37) U/L ALT (12-78) U/L Alkaline Phosphatase (46-116) U/L Creatine Kinase 270 (39-308) U/L CK-MB (CK-2) (0-3.6) mg/mL Troponin I (0.000-0.056) ng/mL Total Protein (6.4-8.2) g/dL Albumin (3.4-5.0) g/dL Globulin (2.3-3.5) g/dL Albumin/Globulin Ratio (1.2-2.2) Triglycerides 66 (15-150) mg/dL Cholesterol 108 (0-200) mg/dL LDL Cholesterol Direct 60 (0-100) mg/dL HDL Cholesterol 46 (40-60) mg/dL TSH, Ultra Sensitive (0.358-3.740) uIU/mL Digoxin 0.40 L (0.90-2.00) ng/mL Med Orders - Current: Current Medications Acetaminophen (Tylenol) 650 mg PO Q4H PRN PRN Reason: Pain (Mild 1-3)/fever Aspirin (Aspirin) 81 mg PO DAILY [facility] Last Admin: 09/10/16 08:00 Dose: 81 mg Docusate Sodium (Colace) 100 mg PO BID PRN PRN Reason: Constipation Doxycycline Hyclate (Vibramycin) 100 mg PO BID [facility] Last Admin: 09/10/16 08:00 Dose: 100 mg Enoxaparin Sodium (Lovenox) 40 mg SUBCUT DAILY [facility] Last Admin: 09/10/16 08:00 Dose: 40 mg Furosemide (Lasix) 20 mg IVPUSH Q12H [facility] Last Admin: 09/10/16 06:09 Dose: 20 mg Lorazepam (Ativan) 1 mg PO BEDTIME PRN PRN Reason: Sleep Last Admin: 09/10/16 00:06 Dose: 1 mg Magnesium Hydroxide (Milk Of Magnesia) 30 ml PO Q12H PRN PRN Reason: Constipation Magnesium Oxide (Magnesium Oxide) 400 mg PO BID [facility] Metoprolol Tartrate (Lopressor) 25 mg PO Q6H [facility] Ondansetron HCl (Zofran) 4 mg IV Q4H PRN PRN Reason: Nausea/Vomiting Oxycodone HCl (Oxycodone) 5 mg PO Q4H PRN PRN Reason: Pain (moderate 4-6) Polyethylene Glycol (Miralax) 17 gm PO DAILY PRN PRN Reason: Constipation Sodium Chloride (Saline Flush) 10 ml FLUSH ASDIRECTED PRN PRN Reason: Keep Vein Open Sodium Chloride (Saline Flush) 10 ml FLUSH ONETIME PRN PRN Reason: PER RADIOLOGY PROTOCOL Last Admin: 09/09/16 16:57 Dose: 10 ml Discontinued Medications Digoxin (Lanoxin) 250 mcg IVPUSH ONETIME ONE Stop: 09/09/16 11:20 Last Admin: 09/09/16 11:42 Dose: 250 mcg Digoxin (Lanoxin) 250 mcg IVPUSH ONETIME ONE Stop: 09/09/16 16:46 Last Admin: 09/09/16 18:18 Dose: 250 mcg Digoxin (Lanoxin) 250 mcg IVPUSH ONETIME ONE Stop: 09/10/16 08:31 Diltiazem HCl (Cardizem Cd) 360 mg PO DAILY [facility] Furosemide (Lasix) 20 mg IV ONETIME ONE Stop: 09/09/16 11:01 Last Admin: 09/09/16 14:16 Dose: 20 mg Sodium Chloride (Normal Saline) 100 mls @ 3 mls/sec IV ONETIME ONE Stop: 09/09/16 16:35 Last Admin: 09/09/16 16:57 Dose: 3 mls/sec Iopamidol (Isovue-370 (76%)) 100 ml IV . DIRECTED [facility] Stop: 09/09/16 23:00 Last Admin: 09/09/16 16:57 Dose: 100 ml Magnesium Oxide (Magnesium Oxide) 800 mg PO ONETIME ONE Stop: 09/10/16 08:31 Metoprolol Tartrate (Lopressor) 25 mg PO Q6H [facility] Potassium Chloride (Klor-Con M20) 40 meq PO ONETIME ONE Stop: 09/10/16 09:01 - Exam Quality Assessment: DVT prophylaxis General: alert, oriented, cooperative, no acute distress Lungs: Clear to auscultation, Normal respiratory effort Cardiovascular: Irregular Rhythm, Tachycardia, Murmurs. No: Bradycardia, Gallops Abdomen: bowel sounds present, soft, no tenderness, no distension Extremities: edema Skin: warm, dry, intact - Problem List Review Problem List Initiated/Reviewed/Updated: Yes - My Orders Last 24 Hours: My Active Orders 09/09/16 10:40 LORazepam [Ativan] 1 mg PO BEDTIME PRN 09/09/16 10:41 Height and Weight [RC] 0511 Oxygen Therapy [RC] PRN Up ad Karyna [RC] ASDIRECTED VTE/DVT Education [RC] Per Unit Routine Vital Signs [RC] Q2H Acetaminophen [Tylenol] 650 mg PO Q4H PRN Docusate Sodium [Colace] 100 mg PO BID PRN Magnesium Hydroxide [Milk of Magnesia] 30 ml PO Q12H PRN Ondansetron [Zofran] 4 mg IV Q4H PRN Polyethylene Glycol 3350 [MiraLAX] 17 gm PO DAILY PRN Sodium Chloride 0.9% [Saline Flush] 10 ml FLUSH ASDIRECTED PRN oxyCODONE 5 mg PO Q4H PRN Saline Lock Insert [OM.PC] Routine Resuscitation Status Routine EKG 12 Lead [EK] Stat 09/09/16 10:42 Cardiac Monitoring [RC] Q6H Intake and Output [RC] QSHIFT Notify Provider Vital Signs [RC] ASDIRECTED 09/09/16 10:45 Enoxaparin [Lovenox] 40 mg SUBCUT DAILY 09/09/16 14:23 Consult to Dietary [Consult to Field Recorder] [CONS] Routine 09/09/16 15:41 Ang Chest [CT] Stat 09/09/16 16:34 Sodium Chloride 0.9% [Saline Flush] 10 ml FLUSH ONETIME PRN 09/09/16 18:30 Furosemide [Lasix] 20 mg IVPUSH Q12H 09/09/16 21:00 Doxycycline [Vibramycin] 100 mg PO BID 09/09/16 Dinner 2 Gram Sodium Diet [DIET] 09/10/16 09:00 Aspirin 81 mg PO DAILY 09/10/16 09:15 Metoprolol Tartrate [Lopressor] 25 mg PO Q6H 09/10/16 21:00 Magnesium Oxide 400 mg PO BID 09/11/16 05:00 BASIC METABOLIC PANEL,BMP [CHEM] Timed CBC WITH AUTO DIFF [HEME] Timed CREATINE KINASE,CK [CHEM] Timed DIGOXIN [CHEM] Timed 09/11/16 08:00 Echo Comp wo Cont [US] Urgent - Plan Plan:: ASSESSMENT AND PLAN SHORTNESS OF BREATH ASSOCIATED WITH MARKED PERIPHERAL EDEMA-suspect underlying cardiac dysfunction, also has significant systolic murmur noted on physical examination. Recent symptoms of increased shortness of breath, peripheral edema , PND, orthopnea, associated with atrial fibrillation and rapid ventricular response. Symptomatically improved with diuresis, less shortness of breath and edema. CT scan of the chest showed no evidence of pulmonary emboli, did document some cardiac enlargement as well as pulmonary edema -2 g sodium diet -Lasix 20 mg IV every 12 hours -Echocardiogram to assess left ventricular function and valvular status ATRIAL FIBRILLATION WITH RAPID VENTRICULAR RESPONSE-unknown length of duration. Rate control has improved over the past 24 hours with use of IV digoxin, will continue to hold Cardizem and start beta dinh therapy today. -Hold oral Cardizem -Metoprolol 25 mg by mouth every 6 hours -Digoxin IV -digoxin level in a.m. ELEVATED CK-noted on previous admission marked elevation, CK-MB also found to be elevated but only in the range of 2-3% of total. CK this morning is now within normal range -Repeat CK in a.m. MAINTENANCE ISSUES -DVT prophylaxis; Lovenox 40 mg subcutaneous daily -GI prophylaxis; not required -Osman catheter; not required -Nutrition; 2 g sodium diet -Nicotine dependence; not indicated CODE STATUS-full code ADMISSION STATUS-patient will be admitted to inpatient status, expect at least a 2 night hospital stay for evaluation and management of problems as outlined above. At the time of this admission I do not reasonably expected evaluation and management of this problem will require more than a 96 hour hospital stay. DISPOSITION-anticipate discharge to home after the hospital stay. PRIMARY CARE PROVIDER-Dr. Leone
[2016-09-10] MEDS: Metoprolol Tartrate 25 MG Tab PO SCH ×4 (10:11→21:45)
[2016-09-10] MEDS: Magnesium Oxide 400 MG Tab PO SCH (21:45)
[2016-09-11] MEDS: Metoprolol Tartrate 25 MG Tab PO SCH ×2 (04:21→09:36)
[2016-09-11] MEDS: Furosemide 20 MG/2 ML VIAL IVPUSH SCH (06:13)
[2016-09-11] MEDS: Magnesium Oxide 400 MG Tab PO SCH ×2 (08:40→20:31)
[2016-09-11] MEDS: Aspirin 81 MG Tab.Chew PO SCH (08:40)
[2016-09-11] MEDS: Enoxaparin 40 MG/0.4 ML Syringe SUBCUT SCH (08:40)
[2016-09-11] MEDS: Doxycycline 100 MG Cap PO SCH ×2 (08:40→20:30)
[2016-09-11] MEDS ORDERED: Digoxin 500 MCG/2 ML Amp IVPUSH ONE (09:00)
[2016-09-11] MEDS: Esmolol/Normal Saline 2.5 GM/250 ML BAG IV SCH ×2 (14:32→19:10)
[2016-09-11] MEDS ORDERED: Warfarin 2.5 MG Tab PO ONE (15:00)
[2016-09-11] MEDS: Enoxaparin 80 MG/0.8 ML Syringe SUBCUT SCH (16:43)
--- NOTE | 2016-09-11 17:14 | PCM.PN ---
- General Info Date of Service: 09/11/16 Functional Status: Reports: tolerating diet, ambulating, urinating - Review of Systems General: Denies: Fever, Weakness, Chills Pulmonary: Reports: no symptoms Cardiovascular: Reports: Palpitations, Edema Gastrointestinal: Reports: No symptoms Systems Review Comment:: This patient has had further good diuresis over the past 24 hours and is noted significant improvement in his peripheral edema as well as shortness of breath. Unfortunately heart rate remains elevated in the range of 120 to 130, blood pressures have remained somewhat borderline. Echocardiogram was obtained today and show severely decreased left ventricular function as well as chamber enlargement. Formal report is pending from cardiology. Discussed with cardiology manager continuous improvement in [place], they have recommended a trial of IV Esmolol for control of heart rate. Further evaluation for ischemic disease. - Patient Data Vitals - most recent: Last Vital Signs Temp 98.4 F 09/11/16 14:00 Pulse 109 H 09/11/16 14:32 Resp 16 09/11/16 16:00 BP 101/77 09/11/16 16:00 Pulse Ox 98 09/11/16 16:00 Weight - most recent: 172 lb 6.4 oz I&O - last 24 hours: Intake & Output 09/11/16 09/11/16 09/11/16 06:59 14:59 22:59 Intake Total 960 Output Total 2100 1250 Balance -2100 -290 Lab Results last 24 hrs: Laboratory Results - last 24 hr 09/11/16 09/11/16 09/11/16 Range/Units 04:34 04:34 13:52 WBC 11.0 (4.5-11.0) K/uL RBC 5.05 (4.30-5.90) M/uL Hgb 16.0 H (12.0-15.0) g/dL Hct 46.6 (40.0-54.0) % MCV 92 (80-98) fL MCH 32 H (27-31) pg MCHC 34 (32-36) % Plt Count 190 (150-400) K/uL Neut % (Auto) 56 (36-66) % Lymph % (Auto) 31 (24-44) % [place] % (Auto) 11 H (2-6) % Eos % (Auto) 2 (2-4) % Baso % (Auto) 1 (0-1) % PT 12.5 H (9.5-12.0) sec INR 1.17 (0.80-1.20) Sodium 142 (140-148) mmol/L Potassium 4.5 (3.6-5.2) mmol/L Chloride 106 (100-108) mmol/L Carbon Dioxide 29 (21-32) mmol/L Anion Gap 6.8 (5.0-14.0) mmol/L BUN 24 H (7-18) mg/dL Creatinine 1.3 (0.8-1.3) mg/dL Est Cr Clr Drug Dosing 61.99 mL/min Estimated GFR (MDRD) 58 L (>60) Glucose 89 (74-106) mg/dL Calcium 8.7 (8.5-10.1) mg/dL Creatine Kinase 198 (39-308) U/L Digoxin 0.57 L (0.90-2.00) ng/mL Med Orders - Current: Current Medications Acetaminophen (Tylenol) 650 mg PO Q4H PRN PRN Reason: Pain (Mild 1-3)/fever Aspirin (Aspirin) 81 mg PO DAILY [facility] Last Admin: 09/11/16 08:40 Dose: 81 mg Digoxin (Lanoxin) 250 mcg PO DAILY@1300 [facility] Docusate Sodium (Colace) 100 mg PO BID PRN PRN Reason: Constipation Doxycycline Hyclate (Vibramycin) 100 mg PO BID [facility] Last Admin: 09/11/16 08:40 Dose: 100 mg Enoxaparin Sodium (Lovenox) 80 mg SUBCUT Q12H [facility] Last Admin: 09/11/16 16:43 Dose: 80 mg Furosemide (Lasix) 40 mg PO DAILY [facility] Esmolol HCl (Brevibloc In Ns Premix) 2.5 gm in 250 mls @ 23.46 mls/hr IV TITRATE [facility]; 50 MCG/KG/MIN PRN Reason: Protocol Last Titration: 09/11/16 16:57 Dose: 125 mcg/kg/min, 58.65 mls/hr Lorazepam (Ativan) 1 mg PO BEDTIME PRN PRN Reason: Sleep Last Admin: 09/10/16 21:50 Dose: 1 mg Magnesium Hydroxide (Milk Of Magnesia) 30 ml PO Q12H PRN PRN Reason: Constipation Magnesium Oxide (Magnesium Oxide) 400 mg PO BID [facility] Last Admin: 09/11/16 08:40 Dose: 400 mg Ondansetron HCl (Zofran) 4 mg IV Q4H PRN PRN Reason: Nausea/Vomiting Oxycodone HCl (Oxycodone) 5 mg PO Q4H PRN PRN Reason: Pain (moderate 4-6) Polyethylene Glycol (Miralax) 17 gm PO DAILY PRN PRN Reason: Constipation Sodium Chloride (Saline Flush) 10 ml FLUSH ASDIRECTED PRN PRN Reason: Keep Vein Open Discontinued Medications Digoxin (Lanoxin) 250 mcg IVPUSH ONETIME ONE Stop: 09/09/16 11:20 Last Admin: 09/09/16 11:42 Dose: 250 mcg Digoxin (Lanoxin) 250 mcg IVPUSH ONETIME ONE Stop: 09/09/16 16:46 Last Admin: 09/09/16 18:18 Dose: 250 mcg Digoxin (Lanoxin) 250 mcg IVPUSH ONETIME ONE Stop: 09/10/16 08:31 Last Admin: 09/10/16 09:31 Dose: 250 mcg Digoxin (Lanoxin) 250 mcg IVPUSH ONETIME ONE Stop: 09/11/16 09:01 Last Admin: 09/11/16 08:41 Dose: 250 mcg Diltiazem HCl (Cardizem Cd) 360 mg PO DAILY [facility] Enoxaparin Sodium (Lovenox) 40 mg SUBCUT DAILY [facility] Last Admin: 09/11/16 08:40 Dose: 40 mg Furosemide (Lasix) 20 mg IV ONETIME ONE Stop: 09/09/16 11:01 Last Admin: 09/09/16 14:16 Dose: 20 mg Furosemide (Lasix) 20 mg IVPUSH Q12H [facility] Last Admin: 09/11/16 06:13 Dose: 20 mg Sodium Chloride (Normal Saline) 100 mls @ 3 mls/sec IV ONETIME ONE Stop: 09/09/16 16:35 Last Admin: 09/09/16 16:57 Dose: 3 mls/sec Iopamidol (Isovue-370 (76%)) 100 ml IV . DIRECTED [facility] Stop: 09/09/16 23:00 Last Admin: 09/09/16 16:57 Dose: 100 ml Magnesium Oxide (Magnesium Oxide) 800 mg PO ONETIME ONE Stop: 09/10/16 08:31 Last Admin: 09/10/16 09:31 Dose: 800 mg Metoprolol Tartrate (Lopressor) 25 mg PO Q6H [facility] Metoprolol Tartrate (Lopressor) 25 mg PO Q6H [facility] Last Admin: 09/11/16 09:36 Dose: 25 mg Potassium Chloride (Klor-Con M20) 40 meq PO ONETIME ONE Stop: 09/10/16 09:01 Last Admin: 09/10/16 09:31 Dose: 40 meq Sodium Chloride (Saline Flush) 10 ml FLUSH ONETIME PRN PRN Reason: PER RADIOLOGY PROTOCOL Last Admin: 09/09/16 16:57 Dose: 10 ml Warfarin Sodium (Coumadin) 7.5 mg PO ONETIME ONE Stop: 09/11/16 15:01 Last Admin: 09/11/16 15:22 Dose: 7.5 mg - Exam Quality Assessment: DVT prophylaxis General: alert, oriented, cooperative, mild distress Lungs: Clear to auscultation, Normal respiratory effort Cardiovascular: Irregular Rhythm, Tachycardia, Murmurs. No: Bradycardia, Gallops, Rubs Abdomen: bowel sounds present, soft, no tenderness, no distension Extremities: edema Skin: warm, dry, intact - Problem List Review Problem List Initiated/Reviewed/Updated: Yes - My Orders Last 24 Hours: My Active Orders 09/10/16 21:00 Magnesium Oxide 400 mg PO BID 09/11/16 08:00 Echo Comp wo Cont [US] Urgent 09/11/16 14:00 Esmolol/Normal Saline [Brevibloc in NS Premix] 2.5 gm in 250 ml IV TITRATE 09/11/16 16:00 Enoxaparin [Lovenox] 80 mg SUBCUT Q12H 09/12/16 05:00 BASIC METABOLIC PANEL,BMP [CHEM] Timed INR,PT,PROTHROMBIN TIME [COAG] Timed MAGNESIUM [CHEM] Timed 09/12/16 09:00 Digoxin [Lanoxin] 250 mcg PO DAILY Furosemide [Lasix] 40 mg PO DAILY - Plan Plan:: ASSESSMENT AND PLAN CONGESTIVE HEART FAILURE WITH SEVERELY DECREASED LEFT VENTRICULAR FUNCTION-he has diuresed well with improvement in shortness of breath as well as peripheral edema. Heart rate remains elevated despite current beta dinh therapy and digoxin. -2 g sodium diet -Lasix 20 mg IV every 12 hours -When stable will need to proceed with evaluation for ischemic disease -IV esmolol him up for heart rate control, then plan to transition back to oral dinh therapy -Digoxin 0.25 mg by mouth daily -Repeat dig level in a.m. -Lovenox 80 mg subcutaneous twice daily -Daily warfarin -Recheck INR in a.m. ATRIAL FIBRILLATION WITH RAPID VENTRICULAR RESPONSE-unknown length of duration. Rate has remained elevated, we'll try management as above -Management as above ELEVATED CK-now normalized MAINTENANCE ISSUES -DVT prophylaxis; therapeutic Lovenox as above -GI prophylaxis; not required -Osman catheter; not required -Nutrition; 2 g sodium diet -Nicotine dependence; not indicated CODE STATUS-full code ADMISSION STATUS-patient will be admitted to inpatient status, expect at least a 2 night hospital stay for evaluation and management of problems as outlined above. At the time of this admission I do not reasonably expected evaluation and management of this problem will require more than a 96 hour hospital stay. DISPOSITION-anticipate discharge to home after the hospital stay. PRIMARY CARE PROVIDER-Dr. Leone
[2016-09-11] MEDS ORDERED: Amiodarone 150 MG in Dextrose 5% in Water 100 ML IV ONE ×2 (19:37)
[2016-09-11] MEDS ORDERED: Amiodarone In Dextrose,Iso-Osm 150 MG in Premix Bag 1 BAG IV ONE ×2 (20:15)
[2016-09-11] MEDS: LORazepam 1 MG Tab PO PRN (23:39)
[2016-09-12] MEDS: Enoxaparin 80 MG/0.8 ML Syringe SUBCUT SCH ×2 (04:25→17:25)
[2016-09-12] MEDS: Furosemide 40 MG Tab PO SCH (09:26)
[2016-09-12] MEDS: Doxycycline 100 MG Cap PO SCH ×2 (09:26→20:56)
[2016-09-12] MEDS: Magnesium Oxide 400 MG Tab PO SCH ×2 (09:26→20:58)
[2016-09-12] MEDS: Aspirin 81 MG Tab.Chew PO SCH (09:26)
--- NOTE | 2016-09-12 09:29 | PCM.PN ---
- General Info Date of Service: 09/12/16 Functional Status: Reports: pain controlled, tolerating diet, ambulating - Review of Systems General: Reports: Weakness Cardiovascular: Reports: Edema. Denies: Chest Pain Systems Review Comment:: No acute events overnight. Continues to feel better with no significant shortness of breath. No episodes of chest pain. Minimal lower extremity edema at this time. Tolerating amiodarone infusion well. Unfortunately his heart rate remains elevated but is a little bit better today. He has not had any fevers. Appetite has been improving. - Patient Data Vitals - most recent: Last Vital Signs Temp 35.9 C 09/12/16 07:46 Pulse 103 H 09/12/16 09:00 Resp 17 09/12/16 09:00 BP 103/67 09/12/16 09:00 Pulse Ox 96 09/12/16 09:00 Weight - most recent: 79.651 kg I&O - last 24 hours: Intake & Output 09/11/16 09/12/16 09/12/16 22:59 06:59 14:59 Intake Total 380 268 Output Total 1000 350 Balance -620 -82 Lab Results last 24 hrs: Laboratory Results - last 24 hr 09/11/16 09/12/16 09/12/16 Range/Units 13:52 04:37 04:37 PT 12.5 H 12.6 H (9.5-12.0) sec INR 1.17 1.18 (0.80-1.20) Sodium 139 L (140-148) mmol/L Potassium 4.2 (3.6-5.2) mmol/L Chloride 105 (100-108) mmol/L Carbon Dioxide 27 (21-32) mmol/L Anion Gap 11.2 (5.0-14.0) mmol/L BUN 25 H (7-18) mg/dL Creatinine 1.1 (0.8-1.3) mg/dL Est Cr Clr Drug Dosing 73.26 mL/min Estimated GFR (MDRD) > 60 (>60) Glucose 99 (74-106) mg/dL Calcium 8.4 L (8.5-10.1) mg/dL Magnesium 2.1 (1.8-2.4) mg/dL Med Orders - Current: Current Medications Acetaminophen (Tylenol) 650 mg PO Q4H PRN PRN Reason: Pain (Mild 1-3)/fever Aspirin (Aspirin) 81 mg PO DAILY [facility] Last Admin: 09/12/16 09:26 Dose: 81 mg Digoxin (Lanoxin) 250 mcg PO DAILY@1300 [facility] Docusate Sodium (Colace) 100 mg PO BID PRN PRN Reason: Constipation Doxycycline Hyclate (Vibramycin) 100 mg PO BID [facility] Last Admin: 09/12/16 09:26 Dose: 100 mg Enoxaparin Sodium (Lovenox) 80 mg SUBCUT Q12H [facility] Last Admin: 09/12/16 04:25 Dose: 80 mg Furosemide (Lasix) 40 mg PO DAILY [facility] Last Admin: 09/12/16 09:26 Dose: 40 mg Amiodarone HCl 450 mg/ (Dextrose/Water) 250 mls @ 33.33 mls/hr IV ASDIRECTED [facility]; 1 MG/MIN PRN Reason: Protocol Last Admin: 09/12/16 04:23 Dose: 0.5 mg/min, 16.66 mls/hr Lorazepam (Ativan) 1 mg PO BEDTIME PRN PRN Reason: Sleep Last Admin: 09/11/16 23:39 Dose: 1 mg Magnesium Hydroxide (Milk Of Magnesia) 30 ml PO Q12H PRN PRN Reason: Constipation Magnesium Oxide (Magnesium Oxide) 400 mg PO BID [facility] Last Admin: 09/12/16 09:26 Dose: 400 mg Ondansetron HCl (Zofran) 4 mg IV Q4H PRN PRN Reason: Nausea/Vomiting Oxycodone HCl (Oxycodone) 5 mg PO Q4H PRN PRN Reason: Pain (moderate 4-6) Polyethylene Glycol (Miralax) 17 gm PO DAILY PRN PRN Reason: Constipation Sodium Chloride (Saline Flush) 10 ml FLUSH ASDIRECTED PRN PRN Reason: Keep Vein Open Discontinued Medications Digoxin (Lanoxin) 250 mcg IVPUSH ONETIME ONE Stop: 09/09/16 11:20 Last Admin: 09/09/16 11:42 Dose: 250 mcg Digoxin (Lanoxin) 250 mcg IVPUSH ONETIME ONE Stop: 09/09/16 16:46 Last Admin: 09/09/16 18:18 Dose: 250 mcg Digoxin (Lanoxin) 250 mcg IVPUSH ONETIME ONE Stop: 09/10/16 08:31 Last Admin: 09/10/16 09:31 Dose: 250 mcg Digoxin (Lanoxin) 250 mcg IVPUSH ONETIME ONE Stop: 09/11/16 09:01 Last Admin: 09/11/16 08:41 Dose: 250 mcg Diltiazem HCl (Cardizem Cd) 360 mg PO DAILY [facility] Enoxaparin Sodium (Lovenox) 40 mg SUBCUT DAILY [facility] Last Admin: 09/11/16 08:40 Dose: 40 mg Furosemide (Lasix) 20 mg IV ONETIME ONE Stop: 09/09/16 11:01 Last Admin: 09/09/16 14:16 Dose: 20 mg Furosemide (Lasix) 20 mg IVPUSH Q12H [facility] Last Admin: 09/11/16 06:13 Dose: 20 mg Sodium Chloride (Normal Saline) 100 mls @ 3 mls/sec IV ONETIME ONE Stop: 09/09/16 16:35 Last Admin: 09/09/16 16:57 Dose: 3 mls/sec Esmolol HCl (Brevibloc In Ns Premix) 2.5 gm in 250 mls @ 23.46 mls/hr IV TITRATE [facility]; 50 MCG/KG/MIN PRN Reason: Protocol Last Admin: 09/11/16 19:10 Dose: 200 mcg/kg/min, 93.84 mls/hr Amiodarone HCl/Dextrose 150 mg (/ Premix) 100 mls @ 600 mls/hr IV ASDIRECTED ONE Stop: 09/11/16 20:24 Last Admin: 09/11/16 20:15 Dose: 600 mls/hr Iopamidol (Isovue-370 (76%)) 100 ml IV . DIRECTED [facility] Stop: 09/09/16 23:00 Last Admin: 09/09/16 16:57 Dose: 100 ml Magnesium Oxide (Magnesium Oxide) 800 mg PO ONETIME ONE Stop: 09/10/16 08:31 Last Admin: 09/10/16 09:31 Dose: 800 mg Metoprolol Tartrate (Lopressor) 25 mg PO Q6H [facility] Metoprolol Tartrate (Lopressor) 25 mg PO Q6H [facility] Last Admin: 09/11/16 09:36 Dose: 25 mg Potassium Chloride (Klor-Con M20) 40 meq PO ONETIME ONE Stop: 09/10/16 09:01 Last Admin: 09/10/16 09:31 Dose: 40 meq Sodium Chloride (Saline Flush) 10 ml FLUSH ONETIME PRN PRN Reason: PER RADIOLOGY PROTOCOL Last Admin: 09/09/16 16:57 Dose: 10 ml Warfarin Sodium (Coumadin) 7.5 mg PO ONETIME ONE Stop: 09/11/16 15:01 Last Admin: 09/11/16 15:22 Dose: 7.5 mg - Exam Quality Assessment: No: supplemental oxygen General: alert, oriented, cooperative, no acute distress Neck: supple Lungs: Clear to auscultation, Normal respiratory effort Cardiovascular: Irregular Rhythm, Tachycardia. No: Murmurs Abdomen: bowel sounds present, soft, no distension Extremities: no cyanosis, edema (pitting edema both lower legs) Skin: warm, dry Psy/Mental Status: alert, normal affect - Problem List Review Problem List Initiated/Reviewed/Updated: Yes - My Orders Last 24 Hours: My Active Orders 09/12/16 09:27 Cardiac Education [RC] DAILY Heart Failure Education [OM.PC] Routine 09/12/16 13:00 Warfarin [Coumadin] 7.5 mg PO DAILY@1300 09/12/16 21:00 Carvedilol [Coreg] 3.125 mg PO BID 09/13/16 05:00 BASIC METABOLIC PANEL,BMP [CHEM] Timed CBC W/O DIFF,HEMOGRAM [HEME] Timed (1) INR,PT,PROTHROMBIN TIME [COAG] Timed 09/15/16 07:00 Myocardial Perf Spect Multi [NM] Routine - Plan Plan:: ASSESSMENT AND PLAN CONGESTIVE HEART FAILURE WITH SEVERELY DECREASED LEFT VENTRICULAR FUNCTION - 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 volume status much better with diuresis. Energy and appetite have both improved. Tolerating medications fairly well but still has difficult to control atrial fibrillation. -Oral diuretics -Digoxin 0.25 mg by mouth daily -Repeat dig level in a.m. -Enoxaparin 80 mg subcutaneous twice daily -Daily warfarin -Recheck INR in a.m. -Lexiscan stress test early next week ATRIAL FIBRILLATION WITH RAPID VENTRICULAR RESPONSE - unknown length of duration. Rate has remained elevated, anticoagulation has been initiated. Rate has been very difficult to control. -finish amiodarone infusion -Start carvedilol this evening MAINTENANCE ISSUES -DVT prophylaxis; therapeutic enoxaparin as above -GI prophylaxis; not required -Osman catheter; not required -Nutrition; 2 g sodium diet ADMISSION STATUS-patient will be admitted to inpatient status, expect at least a 2 night hospital stay for evaluation and management of problems as outlined above. At the time of this admission I do not reasonably expected evaluation and management of this problem will require more than a 96 hour hospital stay. DISPOSITION - anticipate discharge to home after the hospital stay. Navdeep Anthony M.D.
[2016-09-12] MEDS ORDERED: Warfarin 2.5 MG Tab PO SCH (13:00)
[2016-09-12] MEDS: Digoxin 125 MCG Tab PO SCH (13:06)
[2016-09-12] MEDS: Amiodarone 200 MG Tab PO SCH (20:56)
[2016-09-12] MEDS ORDERED: Carvedilol 3.125 MG Tab PO SCH (21:00)
[2016-09-12] MEDS: LORazepam 1 MG Tab PO PRN (22:05)
[2016-09-13] MEDS: Enoxaparin 80 MG/0.8 ML Syringe SUBCUT SCH (05:40)
[2016-09-13] MEDS: Doxycycline 100 MG Cap PO SCH (08:55)
[2016-09-13] MEDS: Magnesium Oxide 400 MG Tab PO SCH (08:56)
[2016-09-13] MEDS: Aspirin 81 MG Tab.Chew PO SCH (08:56)
[2016-09-13] MEDS ORDERED: Carvedilol 6.25 MG Tab PO SCH (09:00)
[2016-09-13] MEDS: Furosemide 40 MG Tab PO SCH (09:00)
[2016-09-13] MEDS: Amiodarone 200 MG Tab PO SCH (09:00)
[2016-09-13] MEDS ORDERED: Carvedilol 3.125 MG Tab PO SCH (09:00)
[2016-09-13 09:05] VITALS: BP 96/58
--- NOTE | 2016-09-13 11:49 | PCM.DCSUM1 ---
Discharge Summary - Hospital Course Brief History: 51-year-old male with recent history of atrial fibrillation and rapid ventricular response who presented as a direct admission after clinic evaluation revealed atrial fibrillation and rapid ventricular response as well as impressive peripheral edema. - Discharge Data Discharge Date: 09/13/16 Discharge Disposition: Home, Self-Care 01 Condition: Good - Discharge Diagnosis/Problem(s) (1) Acute systolic CHF (congestive heart failure), NYHA class 3 SNOMED Code(s): 377103904, 583198450, [id number] ICD Code: I50.21 - ACUTE SYSTOLIC (CONGESTIVE) HEART FAILURE Status: Acute (2) Atrial fibrillation with rapid ventricular response SNOMED Code(s): 354522231627732 ICD Code: I48.91 - UNSPECIFIED ATRIAL FIBRILLATION Status: Acute - Patient Summary/Data Consults: Consultations 09/09/16 14:23 Consult to Dietary [Consult to Teaching Supervisor] [CONS] Routine Comment: Physician Instructions: Quantity: Reason for Consult: low na diet instruction Hospital Course: Ephraim was directly admitted to the hospital from the clinic after presenting with atrial fibrillation and rapid ventricular response. Since recent hospital discharge she had progressive shortness of breath as well as significant progression of lower extremity edema. His energy has declined very quickly. Evaluation in the clinic showed significant elevation of his heart rate and evidence for congestive heart failure. After admission to the hospital he was aggressively diuresed using furosemide. He had an excellent response to diuresis and throughout the course of the hospital stay we have removed more than 9 kg worth of fluid. He is back to his normal weight at the time of discharge. Kidneys have tolerated the diuresis well. Regarding his atrial fibrillation, multiple different medications were attempted and significant difficulties were encountered trying to slow down his heart rate. His blood pressure is borderline low we have not been able to aggressively utilize calcium channel blockers or beta blockers. Trials included diltiazem which dropped his blood pressure as well as a small but unfortunately this medication did not work well and her supply was very limited. Digoxin has been titrated to a maximum dose. Low-dose beta blockers did not seem to help much when metoprolol was utilized. I did start him on carvedilol towards the end of the hospital stay and this seems to be helping a little bit in addition to the amiodarone and digoxin. We have started him on anticoagulation after discussing the risks and benefits. His INR is not yet therapeutic and he will be discharged with enoxaparin to bridge until his INR is therapeutic. The plan is for a repeat INR in 2 days, when he returns for his stress test. I will make any warfarin adjustments at that point. He would benefit from a referral to the Coumadin clinic for additional outpatient management. His CHADSS-VASC score is 1 with CHF/LV dysfunction. We did complete an echocardiogram during the hospital stay which showed significantly reduced ejection fraction around 20-25%. This case was discussed with the on-call cardiology provider at [facility] during the hospital stay. Discussions were held about rate control as well as further ischemic workup. There is no strong indication for urgent transfer and evaluation. He does have outpatient followup scheduled in approximately one week's time with the cardiology team. He is scheduled for a Lexiscan stress test which will be completed 2 days after hospital discharge. I will be communicating the results of this to him after the test is complete. I believe he is safe for outpatient management at this time. He has had an impressive diuresis and significant improvement in his symptoms. We still have not achieved optimal rate control but I'm not sure that additional medication adjustments in the short-term will be worth him staying in the hospital an additional night or 2. I am hopeful that with time his cardiomyopathy will improve and his rate control will improve as well. The 2 most likely potential culprits include a tachycardia-induced cardiomyopathy versus ischemic cardiomyopathy. He does have the ischemic workup scheduled in 48 hours time. He has a fairly close followup appointment with cardiology following hospital discharge as well. - Patient Instructions Diet: Heart Healthy Diet, Low Sodium Activity: As Tolerated Driving: May Drive Today Showering/Bathing: May Shower Notify Provider of: Fever, Increased Pain, Nausea and/or Vomiting Other/Special Instructions: 1. You were in the hospital for management of atrial fibrillation with rapid ventricular response and acute systolic congestive heart failure. Your heart function is reduced from normal and this led to a fluid build up in your body. He have started several new medications to help your heart including carvedilol and digoxin to slow your heart rate down. The furosemide will help to keep your fluid level normal but leading to increased urine production and less water in your body. The amiodarone will help your heart rate slow down and could help your heart return to a normal rhythm. You should take the amiodarone 400 mg twice daily for two weeks then 200 mg twice daily for two weeks then 200 mg once daily there after. 2. Atrial fibrillation can increase your risk of developing a blood clot and potentially a stroke. I recommend that you continue warfarin (Coumadin) to help reduce this risk. You warfarin has not yet reached a therapeutic level and you will need to continue your enoxaprin injections once daily until your blood level is therapeutic, hopefully 4 - 5 days or so. Please take warfarin 10 mg daily in the evening tonight and tomorrow. Thursday we will check your warfarin level and adjust the dosage if needed. Please report to the ER registration desk before your stress test for a blood draw. 3. I would like you to follow up with the Coumadin Clinic at [facility] in [place]. You should have your blood checked Thursday of next week. You are on warfarin for atrial fibrillation your goal INR (blood level) is between 2-3 and you will be on the medication indefinitely. 4. Please see medical attention if you develop fever >101, your breathing suddenly worsens, you edema rapidly returns or you develop chest pain or pressure. 5. You are scheduled for a stress test September 15 at 9:15. This will help determine if you have blockages in your coronary arteries. 6. If you have any concerns or troubles between discharge and the morning September 22 please call me at [phone] and I will help guide you through the problem or recommend evaluation if we cannot resolve the issue over the phone. - Discharge Plan Prescriptions/Med Rec: Amiodarone [Cordarone] 400 mg PO BID #84 tablet Carvedilol [Coreg] 6.25 mg PO BID #60 tablet Digoxin 250 mcg PO DAILY #30 tablet Enoxaparin [Lovenox] 120 mg SUBCUT DAILY #5 syringe Furosemide [Lasix] 40 mg PO DAILY #30 tablet Warfarin [Coumadin] 10 mg PO DAILY@1300 #60 tablet Home Medications: Home Meds LORazepam [Ativan] 1 mg PO BEDTIME PRN #15 tablet 09/02/16 [Rx] Aspirin [Halfprin] 81 mg PO DAILY 09/09/16 [History] Amiodarone [Cordarone] 400 mg PO BID #84 tablet 09/13/16 [Rx] Carvedilol [Coreg] 6.25 mg PO BID #60 tablet 09/13/16 [Rx] Digoxin 250 mcg PO DAILY #30 tablet 09/13/16 [Rx] Enoxaparin [Lovenox] 120 mg SUBCUT DAILY #5 syringe 09/13/16 [Rx] Furosemide [Lasix] 40 mg PO DAILY #30 tablet 09/13/16 [Rx] Warfarin [Coumadin] 10 mg PO DAILY@1300 #60 tablet 09/13/16 [Rx] Patient Handouts: Warfarin: What You Need to Know, Warfarin Coagulopathy, Atrial Fibrillation, Heart Failure, Digoxin tablets or capsules, Carvedilol tablets, Furosemide tablets Referrals: Demar Salguero MD [Primary Care Provider] - (two weeks - f/u hospital stay for CHF and afib with RVR) - Patient Data Vitals - Most Recent: Last Vital Signs Temp 35.7 C 09/13/16 07:28 Pulse 120 H 09/13/16 09:00 Resp 18 09/13/16 09:00 BP 96/58 L 09/13/16 09:00 Pulse Ox 99 09/13/16 09:00 Weight - Most Recent: 77.337 kg I&O - Last 24 hours: Intake & Output 09/12/16 09/13/16 09/13/16 22:59 06:59 14:59 Intake Total 844 42 400 Output Total 850 700 Balance -6 -658 400 Lab Results - Last 24 hrs: Laboratory Results - last 24 hr 09/13/16 09/13/16 09/13/16 Range/Units 05:55 05:55 05:55 WBC 8.6 (4.5-11.0) K/uL RBC 5.20 (4.30-5.90) M/uL Hgb 16.1 H (12.0-15.0) g/dL Hct 47.6 (40.0-54.0) % MCV 92 (80-98) fL MCH 31 (27-31) pg MCHC 34 (32-36) % Plt Count 186 (150-400) K/uL PT 12.0 (9.5-12.0) sec INR 1.13 (0.80-1.20) Sodium 139 L (140-148) mmol/L Potassium 4.6 (3.6-5.2) mmol/L Chloride 106 (100-108) mmol/L Carbon Dioxide 26 (21-32) mmol/L Anion Gap 11.6 (5.0-14.0) mmol/L BUN 24 H (7-18) mg/dL Creatinine 1.2 (0.8-1.3) mg/dL Est Cr Clr Drug Dosing 67.16 mL/min Estimated GFR (MDRD) > 60 (>60) Glucose 92 (74-106) mg/dL Calcium 8.5 (8.5-10.1) mg/dL Med Orders - Current: Current Medications Acetaminophen (Tylenol) 650 mg PO Q4H PRN PRN Reason: Pain (Mild 1-3)/fever Amiodarone HCl (Cordarone) 400 mg PO BID [facility] Last Admin: 09/13/16 09:00 Dose: 400 mg Aspirin (Aspirin) 81 mg PO DAILY [facility] Last Admin: 09/13/16 08:56 Dose: 81 mg Carvedilol (Coreg) 6.25 mg PO BID [facility] Last Admin: 09/13/16 08:56 Dose: 6.25 mg Digoxin (Lanoxin) 250 mcg PO DAILY@1300 [facility] Last Admin: 09/12/16 13:06 Dose: 250 mcg Docusate Sodium (Colace) 100 mg PO BID PRN PRN Reason: Constipation Doxycycline Hyclate (Vibramycin) 100 mg PO BID [facility] Last Admin: 09/13/16 08:55 Dose: 100 mg Enoxaparin Sodium (Lovenox) 80 mg SUBCUT Q12H [facility] Last Admin: 09/13/16 05:40 Dose: 80 mg Furosemide (Lasix) 40 mg PO DAILY [facility] Last Admin: 09/13/16 09:00 Dose: 40 mg Lorazepam (Ativan) 1 mg PO BEDTIME PRN PRN Reason: Sleep Last Admin: 09/12/16 22:05 Dose: 1 mg Magnesium Hydroxide (Milk Of Magnesia) 30 ml PO Q12H PRN PRN Reason: Constipation Magnesium Oxide (Magnesium Oxide) 400 mg PO BID [facility] Last Admin: 09/13/16 08:56 Dose: 400 mg Ondansetron HCl (Zofran) 4 mg IV Q4H PRN PRN Reason: Nausea/Vomiting Oxycodone HCl (Oxycodone) 5 mg PO Q4H PRN PRN Reason: Pain (moderate 4-6) Polyethylene Glycol (Miralax) 17 gm PO DAILY PRN PRN Reason: Constipation Sodium Chloride (Saline Flush) 10 ml FLUSH ASDIRECTED PRN PRN Reason: Keep Vein Open Warfarin Sodium (Coumadin) 10 mg PO DAILY@1300 [facility] Discontinued Medications Carvedilol (Coreg) 3.125 mg PO BID [facility] Last Admin: 09/12/16 20:56 Dose: 3.125 mg Digoxin (Lanoxin) 250 mcg IVPUSH ONETIME ONE Stop: 09/09/16 11:20 Last Admin: 09/09/16 11:42 Dose: 250 mcg Digoxin (Lanoxin) 250 mcg IVPUSH ONETIME ONE Stop: 09/09/16 16:46 Last Admin: 09/09/16 18:18 Dose: 250 mcg Digoxin (Lanoxin) 250 mcg IVPUSH ONETIME ONE Stop: 09/10/16 08:31 Last Admin: 09/10/16 09:31 Dose: 250 mcg Digoxin (Lanoxin) 250 mcg IVPUSH ONETIME ONE Stop: 09/11/16 09:01 Last Admin: 09/11/16 08:41 Dose: 250 mcg Diltiazem HCl (Cardizem Cd) 360 mg PO DAILY [facility] Enoxaparin Sodium (Lovenox) 40 mg SUBCUT DAILY [facility] Last Admin: 09/11/16 08:40 Dose: 40 mg Furosemide (Lasix) 20 mg IV ONETIME ONE Stop: 09/09/16 11:01 Last Admin: 09/09/16 14:16 Dose: 20 mg Furosemide (Lasix) 20 mg IVPUSH Q12H [facility] Last Admin: 09/11/16 06:13 Dose: 20 mg Sodium Chloride (Normal Saline) 100 mls @ 3 mls/sec IV ONETIME ONE Stop: 09/09/16 16:35 Last Admin: 09/09/16 16:57 Dose: 3 mls/sec Esmolol HCl (Brevibloc In Ns Premix) 2.5 gm in 250 mls @ 23.46 mls/hr IV TITRATE [facility]; 50 MCG/KG/MIN PRN Reason: Protocol Last Admin: 09/11/16 19:10 Dose: 200 mcg/kg/min, 93.84 mls/hr Amiodarone HCl 450 mg/ (Dextrose/Water) 250 mls @ 33.33 mls/hr IV ASDIRECTED [facility]; 1 MG/MIN PRN Reason: Protocol Stop: 09/12/16 19:46 Last Admin: 09/12/16 04:23 Dose: 0.5 mg/min, 16.66 mls/hr Amiodarone HCl/Dextrose 150 mg (/ Premix) 100 mls @ 600 mls/hr IV ASDIRECTED ONE Stop: 09/11/16 20:24 Last Admin: 09/11/16 20:15 Dose: 600 mls/hr Iopamidol (Isovue-370 (76%)) 100 ml IV . DIRECTED [facility] Stop: 09/09/16 23:00 Last Admin: 09/09/16 16:57 Dose: 100 ml Magnesium Oxide (Magnesium Oxide) 800 mg PO ONETIME ONE Stop: 09/10/16 08:31 Last Admin: 09/10/16 09:31 Dose: 800 mg Metoprolol Tartrate (Lopressor) 25 mg PO Q6H [facility] Metoprolol Tartrate (Lopressor) 25 mg PO Q6H [facility] Last Admin: 09/11/16 09:36 Dose: 25 mg Potassium Chloride (Klor-Con M20) 40 meq PO ONETIME ONE Stop: 09/10/16 09:01 Last Admin: 09/10/16 09:31 Dose: 40 meq Sodium Chloride (Saline Flush) 10 ml FLUSH ONETIME PRN PRN Reason: PER RADIOLOGY PROTOCOL Last Admin: 09/09/16 16:57 Dose: 10 ml Warfarin Sodium (Coumadin) 7.5 mg PO ONETIME ONE Stop: 09/11/16 15:01 Last Admin: 09/11/16 15:22 Dose: 7.5 mg Warfarin Sodium (Coumadin) 7.5 mg PO DAILY@1300 [facility] Last Admin: 09/12/16 13:05 Dose: 7.5 mg *Q Meaningful Use (DIS) - VTE *Q VTE Criteria *Q: - Stroke *Q Stroke Criteria *Q: - AMI *Q AMI Criteria *Q:
[2016-09-13] MEDS: Digoxin 125 MCG Tab PO SCH (11:53)
[2016-09-13] MEDS ORDERED: Warfarin 5 MG Tab PO SCH (13:00)
[2016-09-13] MEDS ORDERED: Warfarin 2.5 MG Tab PO SCH (13:00)
== END 2016-09-13 12:45 | disposition home or self-care (01) | DRG 201 ==
LOC: JP.ICU 09:54
PROVIDERS: ADMIT Hospitalist; ATTEND Internal Medicine
DX: I48.91 Unspecified atrial fibrillation (principal); I50.21 Acute systolic (congestive) heart failure; I25.5 Ischemic cardiomyopathy; Z87.891 Personal history of nicotine dependence; Z79.82 Long term (current) use of aspirin; Z79.01 Long term (current) use of anticoagulants; I42.8 Other cardiomyopathies
CPT/HCPCS: 36415; 71020; 71020-26; 71275; 80048; 80053; 80061; 80162; 82550; 82553; 83735; 84443; 84484; 85025; 85027; 85610; 93005; 93306; A9270-GY; J0282; J1160; J1650; J1940; J7030; J7050; J7060; Q9967

== ENCOUNTER 2020-09-29 13:05 | Observation (INO) | payer BC ==
[2020-09-29] MEDS ORDERED: Diltiazem 25 MG/5 ML SDV IVPUSH ONE (13:52)
[2020-09-29] MEDS ORDERED: Sodium Chloride 0.9% 10 ML Syringe FLUSH PRN (13:53)
--- NOTE | 2020-09-29 13:56 | EDM.PDOC ---
ED HPI GENERAL MEDICAL PROBLEM - General Chief Complaint: Abdominal Pain Stated Complaint: HERINA IN STOMACH AREA Time Seen by Provider: 09/29/20 13:18 Source of Information: Reports: Patient, RN Notes Reviewed History Limitations: Reports: No Limitations - History of Present Illness INITIAL COMMENTS - FREE TEXT/NARRATIVE: 55-year-old gentleman presents emergency department today initially complaint of abdominal hernia he states he is noticing his had this abdominal hernia for a couple of weeks it seems to be bothering him as he would get short of breath when he does have a history of atrial fibrillation status post ablation. However during the initial evaluation by nursing staff was found to be in atrial fibrillation heart rate 1 60-1 75 he does not feel any of these palpitations and only feels short of breath when he exerts himself. Unknown time or when this happened - Related Data Allergies Allergy/AdvReac Type Severity Reaction Status Date / Time No Known Allergies Allergy Verified 09/29/20 13:52 Home Meds: Home Meds Metoprolol Succinate [Toprol XL 100mg] 100 mg PO DAILY 09/29/20 [History] Past Medical History Cardiovascular History: Reports: Afib, Arrhythmia, Heart Failure, Other (See Below) Other Cardiovascular History: a fib Respiratory History: Reports: Bronchitis, Recurrent Hematologic History: Reports: None Immunologic History: Reports: None Oncologic (Cancer) History: Reports: None Dermatologic History: Reports: None - Infectious Disease History Infectious Disease History: Reports: Chicken Pox, Measles, Mumps - Past Surgical History Cardiovascular Surgical History: Reports: Cardiac Ablation GI Surgical History: Reports: None Musculoskeletal Surgical History: Reports: None Social & Family History - Family History Cardiac: Reports: Afib, Arrhythmia, [place] - Tobacco Use Tobacco Use Comment: current some day smoker - Caffeine Use Caffeine Use: Reports: Coffee, Soda - Recreational Drug Use Recreational Drug Use: No ED ROS GENERAL - Review of Systems Review Of Systems: See Below Constitutional: Reports: No Symptoms HEENT: Reports: No Symptoms Respiratory: Reports: Shortness of Breath Cardiovascular: Reports: Dyspnea on Exertion. Denies: Chest Pain, Lightheadedness, Palpitations GI/Abdominal: Reports: No Symptoms ED EXAM, GENERAL - Physical Exam Exam: See Below Exam Limited By: No Limitations General Appearance: Alert, WD/WN, No Apparent Distress Respiratory/Chest: No Respiratory Distress, Lungs Clear, Normal Breath Sounds, No Accessory Muscle Use, Chest Non-Tender Cardiovascular: Tachycardia GI/Abdominal: Soft, Non-Tender. No: Hernia #1 Interpretation EKG Date: 09/29/20 Time: 15:02 Rhythm: A-Fib Rate (Beats/Min): 155 [place]: Normal P-Wave: Absent QRS: Normal ST-T: Normal QT: Normal Comparison: No Change Course - Vital Signs Last Recorded V/S: Last Vital Signs Temp 97.9 F 09/29/20 13:36 Pulse 108 H 09/29/20 14:10 Resp 16 09/29/20 14:10 BP 115/80 09/29/20 14:10 Pulse Ox 92 L 09/29/20 14:10 - Orders/Labs/Meds Orders: Active Orders 24 hr Category Date Time Status Cardiac Monitoring [RC] .As Directed Care 09/29/20 13:53 Active EKG Documentation Completion [RC] ASDIRECTED Care 09/29/20 13:54 Active Peripheral IV Care [RC] . DIRECTED Care 09/29/20 13:54 Active Chest 1V Frontal [CR] Stat Exams 09/29/20 13:54 Taken Diltiazem [Cardizem] 100 mg Med 09/29/20 14:45 Active Sodium Chloride 0.9% [Normal Saline] 100 ml IV TITRATE Sodium Chloride 0.9% [Normal Saline] 1,000 ml Med 09/29/20 14:00 Active IV ASDIRECTED Sodium Chloride 0.9% [Saline Flush] Med 09/29/20 13:53 Active 10 ml FLUSH ASDIRECTED PRN Peripheral IV Insertion Adult [OM.PC] Stat Oth 09/29/20 13:53 Ordered EKG 12 Lead [EK] Stat Ther 09/29/20 13:54 Ordered Medication Orders Sodium Chloride (Normal Saline) 1,000 mls @ 125 mls/hr IV ASDIRECTED GAMAL Last Admin: 09/29/20 13:58 Dose: 125 mls/hr Documented by: PREILOR Diltiazem HCl 100 mg/ Sodium (Chloride) 100 mls @ 5 mls/hr IV TITRATE GAMAL; Protocol Sodium Chloride (Sodium Chloride 0.9% 10 Ml Syringe) 10 ml FLUSH ASDIRECTED PRN PRN Reason: Keep Vein Open Last Admin: 09/29/20 13:58 Dose: 10 ml Documented by: PREILOR Labs: Laboratory Tests 09/29/20 09/29/20 Range/Units 13:56 13:56 WBC 10.2 (4.5-11.0) K/uL RBC 5.16 (4.30-5.90) M/uL Hgb 15.8 H (12.0-15.0) g/dL Hct 48.0 (40.0-54.0) % MCV 93 (80-98) fL MCH 31 (27-31) pg MCHC 33 (32-36) % Plt Count 171 (150-400) K/uL Neut % (Auto) 52.9 (36-66) % Lymph % (Auto) 33.4 (24-44) % [place] % (Auto) 11.8 H (2-6) % Eos % (Auto) 1.3 L (2-4) % Baso % (Auto) 0.6 (0-1) % Sodium 140 (140-148) mmol/L Potassium 4.6 (3.6-5.2) mmol/L Chloride 105 (100-108) mmol/L Carbon Dioxide 24 (21-32) mmol/L Anion Gap 11.3 (5.0-14.0) mmol/L BUN 33 H (7-18) mg/dL Creatinine 1.2 (0.8-1.3) mg/dL Est Cr Clr Drug Dosing 64.26 mL/min Estimated GFR (MDRD) > 60 (>60) Glucose 81 (74-106) mg/dL Calcium 8.7 (8.5-10.1) mg/dL Troponin I < 0.017 (0.000-0.056) ng/mL Meds: Medications Generic Name Dose Route Start Last Admin Trade Name Freq PRN Reason Stop Dose Admin Sodium Chloride 1,000 mls @ 125 mls/hr 09/29/20 14:00 09/29/20 13:58 Normal Saline IV 125 mls/hr ASDIRECTED GAMAL Administration Diltiazem HCl 100 mg/ Sodium 100 mls @ 5 mls/hr 09/29/20 14:45 Chloride IV TITRATE GAMAL Protocol 5 MG/HR Sodium Chloride 10 ml 09/29/20 13:53 09/29/20 13:58 Sodium Chloride 0.9% 10 Ml Syringe FLUSH 10 ml ASDIRECTED PRN Administration Keep Vein Open Discontinued Medications Generic Name Dose Route Start Last Admin Trade Name Freq PRN Reason Stop Dose Admin Diltiazem HCl 20 mg 09/29/20 13:52 09/29/20 13:58 Diltiazem 25 Mg/5 Ml Sdv IVPUSH 09/29/20 13:53 20 mg ONETIME ONE Administration Departure - Departure Time of Disposition: 15:06 (Tylenol 5-year-old ago no reported to) Disposition: Refer to Observation Condition: Fair Clinical Impression: Atrial fibrillation with RVR Referrals: PCP,None [Primary Care Provider] - Forms: ED Department Discharge Sepsis Event Note (ED) - Evaluation Sepsis Screening Result: No Definite Risk - Focused Exam Vital Signs: Vital Signs Temp Pulse Resp BP Pulse Ox 09/29/20 14:10 108 H 16 115/80 92 L 09/29/20 13:37 156 H 09/29/20 13:36 97.9 F 86 16 106/74 98 09/29/20 13:35 141 H 16 106/76 96 - My Orders Last 24 Hours: My Active Orders 09/29/20 13:53 Cardiac Monitoring [RC] .As Directed Sodium Chloride 0.9% [Saline Flush] 10 ml FLUSH ASDIRECTED PRN Peripheral IV Insertion Adult [OM.PC] Stat 09/29/20 13:54 EKG Documentation Completion [RC] ASDIRECTED Peripheral IV Care [RC] . DIRECTED Chest 1V Frontal [CR] Stat EKG 12 Lead [EK] Stat 09/29/20 14:00 Sodium Chloride 0.9% [Normal Saline] 1,000 ml IV ASDIRECTED 09/29/20 14:45 Diltiazem [Cardizem] 100 mg Sodium Chloride 0.9% [Normal Saline] 100 ml IV TI TRATE - Assessment/Plan Last 24 Hours: My Active Orders 09/29/20 13:53 Cardiac Monitoring [RC] .As Directed Sodium Chloride 0.9% [Saline Flush] 10 ml FLUSH ASDIRECTED PRN Peripheral IV Insertion Adult [OM.PC] Stat 09/29/20 13:54 EKG Documentation Completion [RC] ASDIRECTED Peripheral IV Care [RC] . DIRECTED Chest 1V Frontal [CR] Stat EKG 12 Lead [EK] Stat 09/29/20 14:00 Sodium Chloride 0.9% [Normal Saline] 1,000 ml IV ASDIRECTED 09/29/20 14:45 Diltiazem [Cardizem] 100 mg Sodium Chloride 0.9% [Normal Saline] 100 ml IV TITRATE Plan: Assessment Acuity = acute Site and laterality = Afib with RVR Etiology = unknown history of ablation Manifestations = dyspnea on exertion Location of injury = Home Lab values = CBC,BMP,troponin all negative chest x-ray I did review films myself I cannot appreciate any acute process, the official read from radiology is pending Plan called and discussed the case with Dr. Anthony at 15:00, kindly agreed to evaluate the patient in the ED for admission This note was dictated using [email or web address] voice recognition software please call with any questions on syntax or grammar.
[2020-09-29] MEDS ORDERED: Sodium Chloride 0.9% 1,000 ML IV SCH (14:00)
[2020-09-29] MEDS ORDERED: Diltiazem 100 MG in Sodium Chloride 0.9% 100 ML IV SCH (14:45)
--- NOTE | 2020-09-29 15:59 | PCM.HP.2 ---
H&P History of Present Illness - General Date of Service: 09/29/20 Admit Problem/Dx: Admission Diagnosis/Problem Admission Diagnosis/Problem Atrial fibrillation with rapid ventricular response Source of Information: Patient, Family, Provider History Limitations: Reports: No Limitations - History of Present Illness Initial Comments - Free Text/Narative: CC: I've got a hernia HPI: Ephraim presents to the emergency room today with upper abdominal pain and concern that he may have a hernia. He has noticed this for the past couple of weeks. He describes moderate to severe squeezing-like pain just below his sternum. This often comes on when he has been doing a lot of lifting. The pain does go away with rest. He has not taken anything to make the pain better. This does seem to be steadily getting worse. He has also noticed a bulge in the upper abdomen when the pain is intense. He also notes that he has been feeling short of breath with exertion this too has been getting worse over the past couple of weeks and he now notices it with anything more than mild activity. He has not had any chest pain. He has a rare dry cough. He does report orthopnea for the past 4-5 nights. No lower extremity edema or weight gain. No fevers or chills. He does not report any palpitations. Work-up in the emergency room revealed evidence for atrial fibrillation with a rapid ventricular rate and heart rates up to the 170s. He does have a ventral hernia but this does not appear to be incarcerated. Heart rate has slowed down some with the diltiazem bolus and a drip is being initiated. He will be admitted for management of atrial fibrillation and monitoring of his hernia. - Related Data Allergies/Adverse Reactions: Allergies Allergy/AdvReac Type Severity Reaction Status Date / Time No Known Allergies Allergy Verified 09/29/20 13:52 Home Medications: Home Meds Metoprolol Succinate [Toprol XL 100mg] 100 mg PO DAILY 09/29/20 [History] Past Medical History Cardiovascular History: Reports: Afib, Arrhythmia, Heart Failure, Other (See Below) Other Cardiovascular History: a fib Respiratory History: Reports: Bronchitis, Recurrent Gastrointestinal History: Reports: None Genitourinary History: Reports: None Musculoskeletal History: Reports: None Neurological History: Reports: None Psychiatric History: Reports: None Endocrine/Metabolic History: Reports: None Hematologic History: Reports: None Immunologic History: Reports: None Oncologic (Cancer) History: Reports: None Dermatologic History: Reports: None - Infectious Disease History Infectious Disease History: Reports: Chicken Pox, Measles, Mumps - Past Surgical History Cardiovascular Surgical History: Reports: Cardiac Ablation GI Surgical History: Reports: None Musculoskeletal Surgical History: Reports: None Social & Family History - Family History Cardiac: Reports: Afib, Arrhythmia, [place] - Tobacco Use Tobacco Use Comment: current some day smoker - Caffeine Use Caffeine Use: Reports: Coffee, Soda - Alcohol Use Alcohol Use History: No Alcohol Use in Last Twelve Months: No - Recreational Drug Use Recreational Drug Use: No H&P Review of Systems - Review of Systems: Review Of Systems: See Below Free Text/Narrative: A complete 12 point review of systems was obtained. Pertinent positives and negatives are noted in the history of present illness. All other systems were reviewed and were negative except as noted. Exam - Exam Exam: See Below - Vital Signs Vital Signs: Last Vital Signs Temp 36.6 C 09/29/20 13:36 Pulse 106 H 09/29/20 15:21 Resp 16 09/29/20 15:21 BP 101/82 09/29/20 15:21 Pulse Ox 94 L 09/29/20 15:21 Weight: 81.8 kg - Exam Quality Assessment: No: Supplemental Oxygen General: Alert, Oriented, Cooperative. No: Mild Distress HEENT: Conjunctiva Clear, Mucosa Moist & [place] Neck: Supple, Trachea Midline. No: JVD Lungs: Clear to Auscultation, Normal Respiratory Effort Cardiovascular: Irregular Rhythm, Tachycardia. No: Systolic Murmur GI/Abdominal Exam: Normal Bowel Sounds, Soft, No Distention, No Mass, Tender (epigastrium), Hernia (6 cm round hernia subzyphoid ) Back Exam: Normal Inspection, Full Range of Motion Extremities: No Pedal Edema. No: Increased Warmth Peripheral Pulses: 2+: Dorsalis Pedis (L), Dorsalis Pedis (R) Skin: Warm, Dry Neuro Extensive - Mental Status: Alert, Oriented x3, Nl Response to Commands Neuro Extensive - Motor, Sensory, Reflexes: No: Dysarthria, Abnormal Motor, Tremor Psychiatric: Alert, Normal Affect - Patient Data Lab Results Last 24 hrs: Laboratory Results - last 24 hr 09/29/20 09/29/20 09/29/20 Range/Units 13:56 13:56 15:28 WBC 10.2 (4.5-11.0) K/uL RBC 5.16 (4.30-5.90) M/uL Hgb 15.8 H (12.0-15.0) g/dL Hct 48.0 (40.0-54.0) % MCV 93 (80-98) fL MCH 31 (27-31) pg MCHC 33 (32-36) % Plt Count 171 (150-400) K/uL Neut % (Auto) 52.9 (36-66) % Lymph % (Auto) 33.4 (24-44) % [place] % (Auto) 11.8 H (2-6) % Eos % (Auto) 1.3 L (2-4) % Baso % (Auto) 0.6 (0-1) % Sodium 140 (140-148) mmol/L Potassium 4.6 (3.6-5.2) mmol/L Chloride 105 (100-108) mmol/L Carbon Dioxide 24 (21-32) mmol/L Anion Gap 11.3 (5.0-14.0) mmol/L BUN 33 H (7-18) mg/dL Creatinine 1.2 (0.8-1.3) mg/dL Est Cr Clr Drug Dosing 64.26 mL/min Estimated GFR (MDRD) > 60 (>60) Glucose 81 (74-106) mg/dL Calcium 8.7 (8.5-10.1) mg/dL Magnesium 2.0 (1.8-2.4) mg/dL Troponin I < 0.017 (0.000-0.056) ng/mL Result Diagrams: 09/29/20 13:56 09/29/20 13:56 Imaging Impressions Last 24 hrs: CXR-image personally reviewed-lungs clear with no mass, infiltrate or effusion. #1 Interpretation EKG Date: 09/29/20 Time: 13:46 Rhythm: A-Fib Rate (Beats/Min): 155 [place]: Normal P-Wave: Variable QRS: Normal ST-T: Normal QT: Normal EKG Interpretation Comments: compared to 09/09/2016 the rate is faster today but otherwise unchanged Sepsis Event Note - Evaluation Sepsis Screening Result: No Definite Risk - Focused Exam Vital Signs: Vital Signs Temp Pulse Resp BP Pulse Ox 09/29/20 15:21 106 H 16 101/82 94 L 06/19/21 14:50 87 16 101/81 94 L 09/29/20 14:10 108 H 16 115/80 92 L 09/29/20 13:37 156 H 09/29/20 13:36 36.6 C 86 16 106/74 98 09/29/20 13:35 141 H 16 106/76 96 *Q Meaningful Use (ADM) - VTE Risk Assess *Q Each Risk Factor Represents 1 Point: Age 41 - 59 years, Obesity ( BMI > 25 kg/m2) Total Score 1 Point Risk Factors: 2 Each Risk Factor Represents 2 Points: None Total Score 2 Point Risk Factors: 0 Each Risk Factor Represents 3 Points: None Total Score 3 Point Risk Factors: 0 Each Risk Factor Represents 5 Points: None Total Score 5 Point Risk Factors: 0 Venous Thromboembolism Risk Factor Score *Q: 2 - Problem List (1) Atrial fibrillation with rapid ventricular response SNOMED Code(s): 926444481239956 ICD Code: I48.91 - UNSPECIFIED ATRIAL FIBRILLATION Status: Acute Current Visit: Yes (2) Ventral hernia without obstruction or gangrene SNOMED Code(s): 471692742 ICD Code: K43.9 - VENTRAL HERNIA WITHOUT OBSTRUCTION OR GANGRENE Status: Acute Current Visit: Yes Problem List Initiated/Reviewed/Updated: Yes Orders Last 24hrs: Active Orders 24 hr Category Date Time Status Patient Status Manage Transfer [TRANSFER] Routine ADT 09/29/20 15:51 Active Cardiac Monitoring [RC] .As Directed Care 09/29/20 13:53 Active EKG Documentation Completion [RC] ASDIRECTED Care 09/29/20 13:54 Active Peripheral IV Care [RC] . DIRECTED Care 09/29/20 13:54 Active Chest 1V Frontal [CR] Stat Exams 09/29/20 13:54 Taken TSH ULTRASENSITIVE [CHEM] Routine Lab 09/29/20 15:55 Ordered Diltiazem [Cardizem] 100 mg Med 09/29/20 14:45 Active Sodium Chloride 0.9% [Normal Saline] 100 ml IV TITRATE Sodium Chloride 0.9% [Normal Saline] 1,000 ml Med 09/29/20 14:00 Active IV ASDIRECTED Sodium Chloride 0.9% [Saline Flush] Med 09/29/20 13:53 Active 10 ml FLUSH ASDIRECTED PRN Peripheral IV Insertion Adult [OM.PC] Stat Oth 09/29/20 13:53 Ordered Resuscitation Status Routine Resus Stat 09/29/20 15:52 Ordered EKG 12 Lead [EK] Stat Ther 09/29/20 13:54 Ordered Medication Orders Sodium Chloride (Normal Saline) 1,000 mls @ 125 mls/hr IV ASDIRECTED GAMAL Last Admin: 09/29/20 13:58 Dose: 125 mls/hr Documented by: PREILOR Diltiazem HCl 100 mg/ Sodium (Chloride) 100 mls @ 5 mls/hr IV TITRATE GAMAL; Prot ocol Sodium Chloride (Sodium Chloride 0.9% 10 Ml Syringe) 10 ml FLUSH ASDIRECTED PRN PRN Reason: Keep Vein Open Last Admin: 09/29/20 13:58 Dose: 10 ml Documented by: PREILOR Assessment/Plan Comment:: ASSESSMENT AND PLAN - Paroxysmal atrial fibrillation with rapid ventricular response-symptoms of dyspnea on exertion but no palpitations or chest pain. Rate was quite rapid initially but has responded well to diltiazem. Only trigger that he can think of was overexertion a couple weeks ago. Labs unremarkable. Out of the window for cardioversion. -Diltiazem infusion -Continue metoprolol -Cardiac monitoring -Consider anticoagulation if the rhythm persists Ventral hernia-moderate sized and somewhat symptomatic. Does not appear to be incarcerated. -Surgical consultation tomorrow if worsening Maintenance issues - -DVT prophylaxis-patient is ambulatory -GI prophylaxis-not indicated -Nutrition-regular -Osman catheter-not indicated CODE STATUS -full code Admission justification -this patient will be admitted for observation to manage his paroxysmal atrial fibrillation and monitor his abdominal hernia. Disposition -I anticipate discharge home after the hospital stay Primary care physician -[facility] Navdeep Anthony M.D. - Mortality Measure Prognosis:: Good
[2020-09-29] MEDS ORDERED: Ondansetron 4 MG/2 ML SDV IV PRN (16:42)
[2020-09-29] MEDS ORDERED: Ondansetron 4 MG Tab.DIS PO PRN (16:42)
[2020-09-29] MEDS ORDERED: Acetaminophen 325 MG Tab PO PRN (16:42)
[2020-09-29] MEDS ORDERED: Magnesium Hydroxide 400 MG/5 ML Susp 30 ML Cup PO PRN (16:42)
[2020-09-29] MEDS ORDERED: Lactated Ringers 1,000 ML IV SCH (16:42)
[2020-09-29] MEDS ORDERED: Digoxin 500 MCG/2 ML Amp IVPUSH STA (21:30)
[2020-09-29] MEDS ORDERED: Melatonin 3 MG Tab PO PRN (23:13)
[2020-09-30] MEDS ORDERED: Diltiazem 100 MG in Sodium Chloride 0.9% 100 ML IV SCH (04:00)
[2020-09-30] MEDS ORDERED: Metoprolol Succinate 50 MG Tab.ER PO SCH (09:00)
[2020-09-30] MEDS ORDERED: Diltiazem IR 30 MG Tab PO SCH (10:00)
--- NOTE | 2020-09-30 13:55 | PCM.DCSUM1 ---
Discharge Summary - Hospital Course Brief History: 55-year-old male with history of paroxysmal atrial fibrillation with previous ablation who presented with dyspnea on exertion as well as upper abdominal pain. He was admitted for management of paroxysmal atrial fibrillation with rapid ventricular response and observation for a ventral hernia. Diagnosis: Stroke: No - Discharge Data Discharge Date: 09/30/20 Discharge Disposition: Home, Self-Care 01 Condition: Good - Referral to Home Health Primary Care Physician: PCP None - Discharge Diagnosis/Problem(s) (1) Atrial fibrillation with rapid ventricular response SNOMED Code(s): 739372334594152 ICD Code: I48.91 - UNSPECIFIED ATRIAL FIBRILLATION Status: Acute (2) Ventral hernia without obstruction or gangrene SNOMED Code(s): 066256158 ICD Code: K43.9 - VENTRAL HERNIA WITHOUT OBSTRUCTION OR GANGRENE Status: Acute - Patient Summary/Data Hospital Course: Ephraim presented to the emergency room with his main concern being what he thought was a symptomatic hernia in the epigastrium but also mentions some shortness of breath. 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 He was given a bolus of diltiazem which did slow him down. Labs were unremarkable. He was admitted to the intensive care unit for management of his atrial fibrillation as well as further evaluation of a suspected hernia. We utilize the diltiazem infusion during the initial portion of the hospital stay. Unfortunately he became hypotensive and this had to be stopped the evening after admission. He had received a one-time dose of digoxin. Rate control has been adequate since that time with heart rates in the 90s to 100s. He has not reported any significant dyspnea or chest pain. He was transitioned to oral medications this morning and has tolerated them well. Blood pressure has been in the 110's and his heart rate has been in the 80s and 90s. Symptomatically he feels okay and is interested in going home at this time. We did start him on rivaroxaban because of his elevated CHADS-VASC score and unclear duration of his atrial fibrillation. He does have a cardiology follow-up scheduled in 1 month and consideration for outpatient cardioversion could be considered at that time. There is no obvious reason for his episode of atrial fibrillation with no evidence for ischemia or infection. He did report that the episode started a couple of weeks ago after vigorous work during a very hot day and this may have been the stress on the heart that was the trigger. Regarding the epigastric pain, the patient has a small to medium sized ventral hernia in the epigastric area. This was reducible and not tender on the day of discharge. At this point I think it is more important to get his atrial fibrillation under control since the hernia is not too bothersome. He is aware that if he continues to have difficulty or has an increase in difficulty that he could consider surgical consultation. There is no urgent indication for surgery at this time. - Patient Instructions Diet: Regular Diet as Tolerated Activity: As Tolerated Driving: May Drive Today Showering/Bathing: May Shower Other/Special Instructions: You were in the hospital for management of paroxysmal atrial fibrillation with a rapid ventricular response. Your condition has been improving with the addition of diltiazem to the metoprolol. Your heart does remain in atrial fibrillation at this time. Because of the unclear duration of the heart rhythm we are not able to perform electrical or chemical cardioversion because of the risk of stroke. I recommend that we continue the combination of diltiazem and your prior to admission metoprolol to help control the rate. To help reduce the risk of stroke I recommend that you start rivaroxaban (Xarelto) 20 mg daily. 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 - Discharge Plan *PRESCRIPTION DRUG MONITORING PROGRAM REVIEWED*: Not Applicable *COPY OF PRESCRIPTION DRUG MONITORING REPORT IN PATIENT BART: Not Applicable Prescriptions/Med Rec: dilTIAZem HCL [Diltiazem 24Hr ER] 120 mg PO DAILY #30 cap.sa.24h Rivaroxaban [Xarelto] 20 mg PO DAILY #30 tablet Home Medications: Home Meds Metoprolol Succinate [Toprol XL 100mg] 100 mg PO DAILY 09/29/20 [History] Rivaroxaban [Xarelto] 20 mg PO DAILY #30 tablet 09/30/20 [Rx] dilTIAZem HCL [Diltiazem 24Hr ER] 120 mg PO DAILY #30 cap.sa.24h 09/30/20 [Rx] Oxygen Therapy Mode: Room Air Patient Handouts: Diltiazem Extended-Release Oral Capsules or Tablets, Atrial Fibrillation Referrals: PCP,None [Primary Care Provider] - (Follow-up with one of the providers at the [facility] in 1 to 2 weeks -follow-up hospital stay for paroxysmal atrial fibrillation with rapid ventricular response) - Discharge Summary/Plan Comment DC Time >30 min.: No - Patient Data Vitals - Most Recent: Last Vital Signs Temp 36.5 C 09/30/20 08:00 Pulse 89 09/30/20 13:00 Resp 21 H 09/30/20 13:00 BP 105/79 09/30/20 13:00 Pulse Ox 94 L 09/30/20 13:00 Weight - Most Recent: 87.543 kg I&O - Last 24 hours: Intake & Output 09/29/20 09/30/20 09/30/20 22:59 06:59 14:59 Intake Total 360 240 Output Total 200 Balance 160 240 Lab Results - Last 24 hrs: Laboratory Results - last 24 hr 09/29/20 09/29/20 09/29/20 Range/Units 13:56 13:56 15:28 WBC 10.2 (4.5-11.0) K/uL RBC 5.16 (4.30-5.90) M/uL Hgb 15.8 H (12.0-15.0) g/dL Hct 48.0 (40.0-54.0) % MCV 93 (80-98) fL MCH 31 (27-31) pg MCHC 33 (32-36) % Plt Count 171 (150-400) K/uL Neut % (Auto) 52.9 (36-66) % Lymph % (Auto) 33.4 (24-44) % [place] % (Auto) 11.8 H (2-6) % Eos % (Auto) 1.3 L (2-4) % Baso % (Auto) 0.6 (0-1) % Sodium 140 (140-148) mmol/L Potassium 4.6 (3.6-5.2) mmol/L Chloride 105 (100-108) mmol/L Carbon Dioxide 24 (21-32) mmol/L Anion Gap 11.3 (5.0-14.0) mmol/L BUN 33 H (7-18) mg/dL Creatinine 1.2 (0.8-1.3) mg/dL Est Cr Clr Drug Dosing 64.26 mL/min Estimated GFR (MDRD) > 60 (>60) Glucose 81 (74-106) mg/dL Calcium 8.7 (8.5-10.1) mg/dL Magnesium 2.0 (1.8-2.4) mg/dL Troponin I < 0.017 (0.000-0.056) ng/mL TSH, Ultra Sensitive (0.358-3.740) uIU/mL 09/29/20 Range/Units 15:58 WBC (4.5-11.0) K/uL RBC (4.30-5.90) M/uL Hgb (12.0-15.0) g/dL Hct (40.0-54.0) % MCV (80-98) fL MCH (27-31) pg MCHC (32-36) % Plt Count (150-400) K/uL Neut % (Auto) (36-66) % Lymph % (Auto) (24-44) % [place] % (Auto) (2-6) % Eos % (Auto) (2-4) % Baso % (Auto) (0-1) % Sodium (140-148) mmol/L Potassium (3.6-5.2) mmol/L Chloride (100-108) mmol/L Carbon Dioxide (21-32) mmol/L Anion Gap (5.0-14.0) mmol/L BUN (7-18) mg/dL Creatinine (0.8-1.3) mg/dL Est Cr Clr Drug Dosing mL/min Estimated GFR (MDRD) (>60) Glucose (74-106) mg/dL Calcium (8.5-10.1) mg/dL Magnesium (1.8-2.4) mg/dL Troponin I (0.000-0.056) ng/mL TSH, Ultra Sensitive 1.767 (0.358-3.740) uIU/mL Med Orders - Current: Current Medications Acetaminophen (Acetaminophen 325 Mg Tab) 650 mg PO Q4H PRN PRN Reason: Pain (Mild 1-3)/fever Diltiazem HCl (Diltiazem Ir 30 Mg Tab) 30 mg PO Q6HR GAMAL Last Admin: 09/30/20 09:31 Dose: 30 mg Documented by: Diltiazem HCl (Diltiazem 120 Mg Cap.Cd) 120 mg PO ONETIME ONE Stop: 09/30/20 14:31 Magnesium Hydroxide (Magnesium Hydroxide 400 Mg/5 Ml Susp 30 Ml Cup) 30 ml PO Q12H PRN PRN Reason: Constipation Melatonin (Melatonin 3 Mg Tab) 9 mg PO BEDTIME PRN PRN Reason: Sleep Last Admin: 09/29/20 23:29 Dose: 9 mg Documented by: Metoprolol Succinate (Metoprolol Succinate 50 Mg Tab.Er) 100 mg PO DAILY GAMAL Last Admin: 09/30/20 08:12 Dose: 100 mg Documented by: Ondansetron HCl (Ondansetron 4 Mg/2 Ml Sdv) 4 mg IV Q6H PRN PRN Reason: Nausea/Vomiting Ondansetron HCl (Ondansetron 4 Mg Tab.Dis) 4 mg PO Q6H PRN PRN Reason: Nausea able to take PO Senna/Docusate Sodium (Docusate Sodium/Sennosides 50-8.6 Mg Tab) 1 tab PO BID PRN PRN Reason: Constipation Sodium Chloride (Sodium Chloride 0.9% 10 Ml Syringe) 10 ml FLUSH ASDIRECTED PRN PRN Reason: Keep Vein Open Last Admin: 09/29/20 13:58 Dose: 10 ml Documented by: Discontinued Medications Digoxin (Digoxin 500 Mcg/2 Ml Amp) 250 mcg IVPUSH ONETIME STA Stop: 09/29/20 21:31 Last Admin: 09/29/20 21:50 Dose: 250 mcg Documented by: Diltiazem HCl (Diltiazem 25 Mg/5 Ml Sdv) 20 mg IVPUSH ONETIME ONE Stop: 09/29/20 13:53 Last Admin: 09/29/20 13:58 Dose: 20 mg Documented by: Sodium Chloride (Normal Saline) 1,000 mls @ 125 mls/hr IV ASDIRECTED GAMAL Last Admin: 09/29/20 13:58 Dose: 125 mls/hr Documented by: Diltiazem HCl 100 mg/ Sodium (Chloride) 100 mls @ 5 mls/hr IV TITRATE GAMAL; Protocol Last Titration: 09/29/20 17:11 Dose: 10 mg/hr, 10 mls/hr Documented by: Lactated Ringer's (Ringers, Lactated) 1,000 mls @ 25 mls/hr IV ASDIRECTED GAMAL Stop: 09/30/20 10:00 Diltiazem HCl 100 mg/ Sodium (Chloride) 100 mls @ 5 mls/hr IV TITRATE GAMAL; Protocol Stop: 09/30/20 10:00 Last Admin: 09/30/20 03:56 Dose: 5 mg/hr, 5 mls/hr Documented by:
[2020-09-30 13:58] VITALS: BP 105/77; PULSE 98
[2020-09-30] MEDS ORDERED: Diltiazem 120 MG Cap.CD PO ONE (14:30)
--- NOTE | 2020-10-01 09:39 | CR ---
CHEST: Portable 09/29/2020 at 2:13 PM CLINICAL HISTORY:Chest pain COMPARISON:CT 2017 FINDINGS: Heart is enlarged. Pulmonary vascularity is normal. There is blunting of the right costophrenic angle which may represent small effusion. There is mild generalized interstitial prominence. Some of this may be chronic. IMPRESSION: Cardiomegaly Mild interstitial prominence. Some of this may be chronic Small right pleural effusion
== END 2020-09-30 14:23 | disposition home or self-care (01) ==
LOC: JP.ED 13:05 → JP.ICU 15:51
PROVIDERS: ADMIT Internal Medicine; ATTEND Internal Medicine
DX: I48.0 Paroxysmal atrial fibrillation (principal); K43.9 Ventral hernia without obstruction or gangrene; I50.9 Heart failure, unspecified; F17.200 Nicotine dependence, unspecified, uncomplicated; Z79.899 Other long term (current) drug therapy
CPT/HCPCS: 36415; 71045; 71045-26; 80048; 83735; 84443; 84484; 85025; 93005; 93010; 96365; 96366; 96374; 96375; 99284; 99285-25; A9270-GY; G0378; J1160; J3490; J7030